=== PATIENT | male | born 1950 | race Caucasian/White ===

== ENCOUNTER → 2017-03-27 | Outpatient (CLI) | payer MEDICARE, OTHER ==
[2017-03-27 15:05] LABS: PARTIAL THROMBOPLASTIN TIME 37.5 SEC (23.5-35.8)
== END ==
LOC: OD 12:46
PROVIDERS: ATTEND Internal Medicine Gastroenterology
DX: K70.31 Alcoholic cirrhosis of liver with ascites (principal)
CPT/HCPCS: 36415; 82105; 85610; 85730

== ENCOUNTER 2017-04-03 12:24 | Day surgery (SDC) | payer MEDICARE, OTHER ==
[2017-04-03 12:53] LABS: HEMATOCRIT 36.2 % (37.9-51.0); HEMOGLOBIN 12.7 g/dL (13.5-17.0); MEAN CORPUSCULAR HEMOGLOBIN 35.9 pg (27.0-33.4); MEAN CORPUSCULAR HGB CONC 35.1 g/dL (32.0-36.0); MEAN CORPUSCULAR VOLUME 102 fl (80-97); PLATELET COUNT 178 10^3/uL (150-450); RED BLOOD COUNT 3.54 10^6/uL (4.35-5.55); WHITE BLOOD COUNT 6.4 10^3/uL (4.0-10.5)
[2017-04-03 13:05] LABS: INTERNATIONAL RATION (INR) 1.03; PROTHROMBIN TIME 14.2 SEC (11.4-15.4)
[2017-04-03 13:06] LABS: PARTIAL THROMBOPLASTIN TIME 37.7 SEC (23.5-35.8)
[2017-04-03 13:24] LABS: BLOOD UREA NITROGEN 12 mg/dL (7-20)
[2017-04-03 15:15] VITALS: BP 139/85
--- NOTE | 2017-04-03 16:25 | RADIOLOGY REPORT (SQ) ---
EXAM DESCRIPTION: U/S ABD PARACENTESIS COMPLETED DATE/TIME: 04/03/2017 2:45 pm REASON FOR STUDY: ASCITES COMPARISON None. LIMITATIONS: None. PROCEDURE: After obtaining informed consent, the patient was brought to the ultrasound suite. The p rocedure was performed with the patient on a gurney. Ultrasound was used to identify a prominent poc ket of ascites in the right lower quadrant. An appropriate access site was selected. The patient wa s prepped and draped in usual sterile fashion. The access site was anesthetized with 7 mL 1% lidoca ine. A Bdai-H-Wsvfpfqc needle was advanced into the fluid. After aspiration of fluid the needle, th e catheter was advanced off the needle into the fluid. A total of 3,000 mL of clear straw-colored fl uid was removed. The patient tolerated the procedure well left the department in satisfactory conditi on. Fluid was sent for cytology IMPRESSION: Successful ultrasound-guided paracentesis COMMENT: Patient medication list reviewed: Yes- Quality ID# [id number]:Eligible professional attests to doc umenting in the medical record they obtained, updated, or reviewed the patient's current medications. Quality ID #[id number]: The patient was prepped and draped using maximum sterile barrier technique including cap, mask, sterile gown, sterile gloves, a large sterile sheet, hand hygiene, and 2% Chlorhexidine fo r cutaneous antisepsis. When ultrasound is used, sterile ultrasound techniques are followed requiring sterile gel and sterile probes. Quality ID #[id number]: Final reports for procedures using fluoroscopy that document radiation exposure tiff denise, or exposure time and number of fluorographic images (if radiation exposure indices are not avail able) TECHNICAL DOCUMENTATION: JOB ID: [id number] [employer]- All Rights Reserved
== END 2017-04-03 15:25 | disposition home or self-care (01) ==
LOC: RAD 12:24
PROVIDERS: ATTEND Internal Medicine Gastroenterology
PROC: 0W9F3ZZ Drainage of Abdominal Wall, Percutaneous Approach (ICD-10-PCS; principal; 2017-04-03)
DX: K70.31 Alcoholic cirrhosis of liver with ascites (principal); Z79.51 Long term (current) use of inhaled steroids; Z79.899 Other long term (current) drug therapy
CPT/HCPCS: 36415; 49083; 82565; 84520; 85027; 85610; 85730

== ENCOUNTER 2017-04-13 10:20 | Day surgery (SDC) | payer OTHER ==
[~2017-04-13 10:20] MED LIST: PROPOFOL INJ 200 MG/20 ML VIAL IV ONE
[2017-04-13 11:58] VITALS: BP 111/63
--- NOTE | 2017-04-13 13:24 | Operative Report ---
Operative Report DATE OF SURGERY: 04/13/17 Operative Report: The risks benefits and alternatives of the procedure explained to the patient in detail and informed consent is obtained.A GIF Olympus video scope was inserted into the patient's mouth and hypopharynx, the esophagus is identified intubated and insufflated, the scope was then advanced through the esophagus stomach and duodenum, retroflexion maneuver is done, the esophagus stomach and first and second portions of the duodenum examined PREOPERATIVE DIAGNOSIS: Cirrhosis, evaluate for esophageal varices POSTOPERATIVE DIAGNOSIS: Grade 1 esophageal varices. Esophagitis. Gastritis status post biopsy rule out Helicobacter pylori OPERATION: EGD with biopsy SURGEON: EMERITA YANG ANESTHESIA: LMAC TISSUE REMOVED OR ALTERED: As noted above. COMPLICATIONS: None. ESTIMATED BLOOD LOSS: None. INTRAOPERATIVE FINDINGS: As noted above. PROCEDURE: Patient tolerated procedure well. No immediate postprocedure complications are noted. Patient discharged in good condition. Discharge date 04/13/2017. Discharge diet: Regular. Discharge activity: Regular. 2-3 week follow-up to discuss findings. Patient is instructed call the office or proceed to the emergency room should there be any further problems or questions. We will wait on pathology.
== END 2017-04-13 12:05 | disposition home or self-care (01) ==
LOC: END 10:20
PROVIDERS: ATTEND Internal Medicine Gastroenterology
PROC: 0DB68ZX Excision of Stomach, Via Natural or Artificial Opening Endoscopic, Diagnostic (ICD-10-PCS; principal; 2017-04-13 13:00)
DX: I85.00 Esophageal varices without bleeding (principal); K20.9 Esophagitis, unspecified; K31.9 Disease of stomach and duodenum, unspecified; K70.31 Alcoholic cirrhosis of liver with ascites; Z79.51 Long term (current) use of inhaled steroids
CPT/HCPCS: 43239; 88342 ×2; 88305 ×2; J2704; 731

== ENCOUNTER 2018-03-07 11:24 | Emergency (ER) | payer OTHER ==
--- NOTE | 2018-03-07 12:04 | ER Document Report ---
ED Medical Screen (RME) - General Chief Complaint: Productive Cough Stated Complaint: COUGH Time Seen by Provider: 03/07/18 11:36 Mode of Arrival: Ambulatory Information source: Patient - And Notes: 68-year-old male presents to ED for cough times 3 weeks. He states he has been extremely short of breath. He states while he is sitting upright he can breathe okay but as soon as he lays down he becomes very short of breath and has a hard time catching his breath. He states he was hospitalized at [facility] for acute alcohol hepatitis, acute renal failure, ascites, C. difficile, anemia, and hypotension. He states he was released 10 days ago and has not been able to lay flat to breathe since. He states he has had the ascites and the last time it was drained was in March. He states while he was at [facility] they were so concerned about the renal failure and C. difficile that they did not drain his abdomen. He states that he was not released from [facility] until he had a negative C. difficile test. Patient and states that he cannot lay flat and is propped up on several pillows at home. Breath sounds are diminished. Patient was ordered labs x-ray will be evaluated by another provider. I have greeted and performed a rapid initial assessment of this patient. A comprehensive ED assessment and evaluation of the patient, analysis of test results and completion of medical decision making process will be conducted by an additional ED providers. TRAVEL OUTSIDE OF THE [place] IN LAST 30 DAYS: No - Related Data Allergies/Adverse Reactions: Penicillins Allergy (Verified 03/07/18 11:26) Urticaria FLU VACCINE Allergy (Uncoded 03/07/18 11:26) Past Medical History - Social History Chew tobacco use (# tins/day): No Frequency of alcohol use: None Drug Abuse: None - Past Medical History Cardiac Medical History: Reports: Hx Hypertension - ON MEDS Denies: Hx Coronary Artery Disease, Hx Heart Attack Pulmonary Medical History: Denies: Hx Asthma, Hx Bronchitis, Hx COPD, Hx Pneumonia Neurological Medical History: Denies: Hx Cerebrovascular Accident, Hx Seizures Renal/ Medical History: Denies: Hx Peritoneal Dialysis Musculoskeltal Medical History: Denies Hx Arthritis - Immunizations Hx Diphtheria, Pertussis, Tetanus Vaccination: No - UNSURE History of Influenza Vaccine for 12/2016 - 05/2017 Season: No Physical Exam - Vital signs Vitals: Temp Pulse Resp BP Pulse Ox 98 F 90 22 H 113/67 100 03/07/18 11:33 03/07/18 11:33 03/07/18 11:33 03/07/18 11:33 03/07/18 11:33 Course - Vital Signs Vital signs: Temp Pulse Resp BP Pulse Ox 98 F 90 22 H 113/67 100 03/07/18 11:33 03/07/18 11:33 03/07/18 11:33 03/07/18 11:33 03/07/18 11:33 Doctor's Discharge - Discharge Referrals: KOBI CANNON, [Primary Care Provider] - Follow up as needed
--- NOTE | 2018-03-07 12:33 | RADIOLOGY REPORT (SQ) ---
EXAM DESCRIPTION: ACUTE ABDOMEN SERIES COMPLETED DATE/TIME: 03/07/2018 12:23 pm REASON FOR STUDY: acites cough short of breath COMPARISON: None. NUMBER OF VIEWS: Three views. TECHNIQUE: PA chest, supine abdomen and upright/decubitus abdomen radiographic images acquired. LIMITATIONS: None. FINDINGS: CHEST: Lungs clear of infiltrates. FREE AIR: None. No abnormal gas collections. BOWEL GAS PATTERN: Few scattered small bowel loops with air fluid levels. No distended large or small bowel loops. CALCIFICATIONS: No suspicious calcifications. HARDWARE: None in the abdomen. SOFT TISSUES: No gross mass or suggestion of organomegaly. BONES: No acute fracture. No worrisome bone lesions. OTHER: No other significant finding. IMPRESSION: NONSPECIFIC BOWEL GAS PATTERN WITHOUT EVIDENCE FOR OBSTRUCTION. TECHNICAL DOCUMENTATION: JOB ID: [id number] [employer]- All Rights Reserved Reading location - IP/workstation name: [email or web address]
[2018-03-07 12:45] LABS: ABSOLUTE BASOPHILS # (AUTO) 0.1 10^3/uL (0.0-0.2); ABSOLUTE EOSINOPHILS # (AUTO) 0.2 10^3/uL (0.0-0.6); ABSOLUTE LYMPHOCYTES (AUTO) 1.3 10^3/uL (0.5-4.7); ABSOLUTE MONOCYTES (AUTO) 1.3 10^3/uL (0.1-1.4); ABSOLUTE NEUT (AUTO) 9.5 10^3/uL (1.7-8.2); BASOPHILS % (AUTO) 0.8 % (0-2); EOSINOPHILS % (AUTO) 1.3 % (0-6); HEMATOCRIT 29.4 % (37.9-51.0); HEMOGLOBIN 9.8 g/dL (13.5-17.0); LYMPHOCYTES % (AUTO) 10.3 % (13-45); MEAN CORPUSCULAR HEMOGLOBIN 36.4 pg (27.0-33.4); MEAN CORPUSCULAR HGB CONC 33.4 g/dL (32.0-36.0); MEAN CORPUSCULAR VOLUME 109 fl (80-97); MONOCYTES % (AUTO) 10.7 % (3-13); PLATELET COUNT 305 10^3/uL (150-450); RED CELL DISTRIBUTION WIDTH 15.3 % (11.5-14.0); SEGMENTED NEUTROPHILS % (AUTO) 76.9 % (42-78); TOTAL CELLS COUNTED % (AUTO) 100 %; WHITE BLOOD COUNT 12.4 10^3/uL (4.0-10.5)
[2018-03-07 12:54] LABS: INTERNATIONAL RATION (INR) 1.64; PROTHROMBIN TIME 20.2 SEC (11.4-15.4)
[2018-03-07 12:55] LABS: PARTIAL THROMBOPLASTIN TIME 45.6 SEC (23.5-35.8)
[2018-03-07 12:56] LABS: ALANINE AMINOTRANSFERASE 28 U/L (21-72); ALBUMIN 4.2 g/dL (3.5-5.0); ALKALINE PHOSPHATASE 148 U/L (38-126); ANION GAP 14 (5-19); ASPARTATE AMINO TRANSFERASE 112 U/L (17-59); BILIRUBIN,DIRECT 5.3 mg/dL (0.0-0.4); BILIRUBIN,TOTAL 7.8 mg/dL (0.2-1.3); BLOOD UREA NITROGEN 22 mg/dL (7-20); CALCIUM 9.5 mg/dL (8.4-10.2); CARBON DIOXIDE 18 mmol/L (22-30); CHLORIDE 108 mmol/L (98-107); GLUCOSE 109 mg/dL (75-110); LIPASE 256.2 U/L (23-300); POTASSIUM 5.1 mmol/L (3.6-5.0); SODIUM 140.2 mmol/L (137-145); TOTAL PROTEIN 8.2 g/dL (6.3-8.2)
--- NOTE | 2018-03-07 14:37 | ER Document Report ---
ED General - General Chief Complaint: Productive Cough Stated Complaint: COUGH Time Seen by Provider: 03/07/18 11:36 Mode of Arrival: Ambulatory TRAVEL OUTSIDE OF THE [place] IN LAST 30 DAYS: No - HPI Onset: Other - This is a 68-year-old gentleman with alcoholic cirrhosis and resultant ascites who has undergone previous admission approximately 1 month ago for inpatient detox followed by an episode where he had complicated withdrawals low blood pressures requiring hospitalization in intensive care unit setting who is been doing well at home that she developed shortness of breath over the last month as well as a cough which has been persistent. He and his note that the cough is making it difficult for him to obtain normal rest because of it keeping him up at night. They deny any fevers, chills, back pain, chest pain do endorses some low-grade abdominal pain. He has had episodes like this in the past and previously had undergone large volume paracentesis in an attempt to help alleviate some of these symptoms. - Related Data Allergies/Adverse Reactions: Penicillins Allergy (Verified 03/07/18 11:26) Urticaria FLU VACCINE Allergy (Uncoded 03/07/18 11:26) Past Medical History - General Information source: Patient - And - Social History Smoking Status: Never Smoker Chew tobacco use (# tins/day): No Frequency of alcohol use: None Drug Abuse: None Family History: None Patient has suicidal ideation: No Patient has homicidal ideation: No - Past Medical History Cardiac Medical History: Reports: Hx Hypertension - ON MEDS Denies: Hx Coronary Artery Disease, Hx Heart Attack Pulmonary Medical History: Denies: Hx Asthma, Hx Bronchitis, Hx COPD, Hx Pneumonia Neurological Medical History: Denies: Hx Cerebrovascular Accident, Hx Seizures Renal/ Medical History: Denies: Hx Peritoneal Dialysis Musculoskeletal Medical History: Denies Hx Arthritis - Immunizations Hx Diphtheria, Pertussis, Tetanus Vaccination: No - UNSURE Review of Systems - Review of Systems -: Yes All other systems reviewed and negative Physical Exam - Vital signs Vitals: Temp Pulse Resp BP Pulse Ox 98 F 90 22 H 113/67 100 03/07/18 11:33 03/07/18 11:33 03/07/18 11:33 03/07/18 11:33 03/07/18 11:33 - General General appearance: Appears well In distress: None - HEENT Head: Normocephalic Eyes: Normal Conjunctiva: Normal Cornea: Normal Extraocular movements intact: Yes Eyelashes: Normal Pupils: PERRL - Respiratory Respiratory status: No respiratory distress Chest status: Nontender Breath sounds: Normal Chest palpation: Normal - Cardiovascular Rhythm: Regular Heart sounds: Normal auscultation - Abdominal Inspection: Other - Massive ascites Distension: Distended, Fluid wave Bowel sounds: Normal Tenderness: Nontender Organomegaly: No organomegaly - Back Back: Normal - Extremities General upper extremity: Normal inspection, Nontender, Normal color, Normal ROM, Normal temperature General lower extremity: Normal inspection, Nontender, Normal color, Normal ROM, Normal temperature, Normal weight bearing. No: Stephanie's sign - Neurological Neuro grossly intact: Yes Cognition: Normal Orientation: AAOx4 Chung Coma Scale Eye Opening: Spontaneous Chung Coma Scale Verbal: Oriented Chung Coma Scale Motor: Obeys Commands Chung Coma Scale Total: 15 Speech: Normal Motor strength normal: LUE, RUE, LLE, RLE Sensory: Normal - Psychological Associated symptoms: Normal affect, Normal mood Course - Re-evaluation Re-evalutation: 03/07/18 19:01 This gentleman presents for persistent cough. He has symptoms suggestive of a post viral cough which is making it very difficult for him to obtain any relief and sleep at night. Despite the fact that his cough is relatively benign it is noteworthy that this gentleman does have large volume ascites which likely contributes to his difficulty. In the past he had undergone paracentesis. He and his did discuss possible paracentesis with me. I did discuss that large volume paracentesis for symptom relief is not generally a procedure with which I have asked how or perform with any regularity as such I do not feel comfortable performing this elective procedure in the emergency department particularly because of the volume involved. I do think that this gentleman would benefit from some antitussive as I did hear him cough while I was in the room for some period of time and it seemed somewhat distressing to him. I will give him a trial of codeine. The patient does not have influenza, does not have obvious large pleural effusion on the right side or edema in the lungs. He is generally pretty well-appearing at this time. I do not believe that he has a more serious underlying cause of his cough and shortness of breath such as but not limited to pneumonia, heart failure, liver failure on top of his chronic liver failure. He will be discharged with follow-up with his primary physician and instructions to attempt to obtain a paracentesis in the coming days. He has been given a brief course of codeine to help with his cough at home. He was given return precautions and encouraged to follow-up with Dr. Yang as well. - Vital Signs Vital signs: Temp Pulse Resp BP Pulse Ox 98.1 F 83 20 115/61 99 03/07/18 14:45 03/07/18 14:45 03/07/18 14:45 03/07/18 14:45 03/07/18 14:45 - Laboratory Result Diagrams: 03/07/18 12:20 03/07/18 12:20 Laboratory results interpreted by me: 03/07/18 03/07/18 03/07/18 12:20 12:20 12:20 WBC 12.4 H RBC 2.70 L Hgb 9.8 L Hct 29.4 L MCV 109 H MCH 36.4 H RDW 15.3 H Lymphocytes % 10.3 L Absolute Neutrophils 9.5 H PT 20.2 H APTT 45.6 H Potassium 5.1 H Chloride 108 H Carbon Dioxide 18 L BUN 22 H Total Bilirubin 7.8 H Direct Bilirubin 5.3 H AST 112 H Alkaline Phosphatase 148 H Discharge - Discharge Clinical Impression: Cough Ascites Qualifiers: Ascites type: due to alcoholic cirrhosis Qualified Code(s): K70.31 - Alcoholic cirrhosis of liver with ascites Insomnia Qualifiers: Insomnia type: unspecified Qualified Code(s): G47.00 - Insomnia, unspecified Condition: Good Disposition: HOME, SELF-CARE Instructions: Cough Suppressant & Expectorant Medications Additional Instructions: You were seen today in the emergency department for your cough. You had evaluation including labs as well as an x-ray of your chest and abdomen. You have ascites, this ascites is because of your cirrhosis. This ascites will continue to come back. Because this is going to come back I do not believe it is appropriate to drain in the emergency department right now. To treat her cough however I do want to help, you have been given a brief prescription for a cough medication. Start with half the dose to see how you do with it. Sleep propped up on pillows. I attempted to call the radiology department to schedule a paracentesis for you, they are out of the office today. You should call tomorrow to try and schedule an appointment this week. Return if you are unable to breathe, have worsening chest pain, worsening abdominal pain or fevers as it could be a more serious condition. Prescriptions: Guaifenesin/Codeine Phos [Codeine 10 Mg-Guai 300 Mg Liq] 473 ml PO TID #1 liquid Referrals: KOBI CANNON DO [Primary Care Provider] - Follow up as needed EMERITA YANG MD [ACTIVE STAFF] - Follow up in 3-5 days GAYATHRI MONROE MD [ACTIVE STAFF] - Follow up in 3-5 days
[2018-03-07 14:47] VITALS: BP 115/61
== END 2018-03-07 14:45 | disposition home or self-care (01) ==
LOC: ER 11:24
DX: K70.31 Alcoholic cirrhosis of liver with ascites (principal); G47.00 Insomnia, unspecified; R05 Cough; R06.02 Shortness of breath; I10 Essential (primary) hypertension; Z79.899 Other long term (current) drug therapy
CPT/HCPCS: 36415; 74022; 80053; 83690; 85025; 85610; 85730; 99284

== ENCOUNTER 2018-03-08 09:32 | Emergency (ER) | payer OTHER ==
--- NOTE | 2018-03-08 10:40 | ER Document Report ---
ED Medical Screen (RME) - General Chief Complaint: Shortness Of Breath Stated Complaint: DIFFICULTY BREATHING Time Seen by Provider: 03/08/18 09:58 TRAVEL OUTSIDE OF THE [place] IN LAST 30 DAYS: No - Related Data Allergies/Adverse Reactions: Penicillins Allergy (Verified 03/08/18 09:34) Urticaria FLU VACCINE Allergy (Uncoded 03/08/18 09:34) Past Medical History - Past Medical History Cardiac Medical History: Reports: Hx Hypertension - ON MEDS Denies: Hx Coronary Artery Disease, Hx Heart Attack Pulmonary Medical History: Denies: Hx Asthma, Hx Bronchitis, Hx COPD, Hx Pneumonia Neurological Medical History: Denies: Hx Cerebrovascular Accident, Hx Seizures Renal/ Medical History: Denies: Hx Peritoneal Dialysis Musculoskeltal Medical History: Denies Hx Arthritis - Immunizations Hx Diphtheria, Pertussis, Tetanus Vaccination: No - UNSURE History of Influenza Vaccine for 12/2016 - 05/2017 Season: No Physical Exam - Vital signs Vitals: Temp Pulse Resp BP Pulse Ox 98.6 F 79 18 115/64 97 03/08/18 09:41 03/08/18 09:41 03/08/18 09:41 03/08/18 09:41 03/08/18 09:41 Course - Re-evaluation Re-evalutation: 03/08/18 10:40 Nader Jensen is a 68-year-old man with profound ascites and liver failure in the setting of alcoholic cirrhosis who presents for evaluation of desired paracentesis. Incidentally I saw this gentleman yesterday at which time he desired the same thing, his did call into the radiology department they noted that if he presented today they likely would be able to perform the pa racentesis. Contacted radiology department who agrees to evaluate this patient. I will plan for this patient undergo further investigation evaluation by secondary provider, the the appropriate diagnostics, disposition and workup will be deferred to that provider. I have performed a rapid screening examination and they will require further evaluation. - Vital Signs Vital signs: Temp Pulse Resp BP Pulse Ox 98.6 F 79 18 115/64 97 03/08/18 09:41 03/08/18 09:41 03/08/18 09:41 03/08/18 09:41 03/08/18 09:41 - Laboratory Result Diagrams: 03/08/18 10:27 12/24/18 10:27 Doctor's Discharge - Discharge Referrals: KOBI CANNON, [Primary Care Provider] - Follow up as needed
[2018-03-08 10:42] LABS: ABSOLUTE BASOPHILS # (AUTO) 0.1 10^3/uL (0.0-0.2); ABSOLUTE EOSINOPHILS # (AUTO) 0.2 10^3/uL (0.0-0.6); ABSOLUTE LYMPHOCYTES (AUTO) 1.4 10^3/uL (0.5-4.7); ABSOLUTE NEUT (AUTO) 9.4 10^3/uL (1.7-8.2); BASOPHILS % (AUTO) 0.7 % (0-2); EOSINOPHILS % (AUTO) 1.5 % (0-6); HEMATOCRIT 28.2 % (37.9-51.0); HEMOGLOBIN 9.5 g/dL (13.5-17.0); LYMPHOCYTES % (AUTO) 11.5 % (13-45); MEAN CORPUSCULAR HEMOGLOBIN 36.5 pg (27.0-33.4); MEAN CORPUSCULAR HGB CONC 33.7 g/dL (32.0-36.0); MEAN CORPUSCULAR VOLUME 108 fl (80-97); MONOCYTES % (AUTO) 8.6 % (3-13); PLATELET COUNT 309 10^3/uL (150-450); RED CELL DISTRIBUTION WIDTH 15.2 % (11.5-14.0); SEGMENTED NEUTROPHILS % (AUTO) 77.7 % (42-78); TOTAL CELLS COUNTED % (AUTO) 100 %
--- NOTE | 2018-03-08 10:47 | ER Document Report ---
ED General - General Mode of Arrival: Ambulatory Information source: Patient TRAVEL OUTSIDE OF THE [place] IN LAST 30 DAYS: No <PATRICIA GONZALEZ - Last Filed: 03/08/18 14:17> <YESSENIA LABOY - Last Filed: 03/08/18 16:03> - General Chief Complaint: Shortness Of Breath Stated Complaint: DIFFICULTY BREATHING Time Seen by Provider: 03/08/18 09:58 Notes: Patient is a 68-year-old man with ascites, alcoholic cirrhosis who presents for desired paracentesis. Patient presented to the emergency department yesterday complaining of a cough and was discharged home with codeine cough syrup and instructions to contact radiology to schedule a paracentesis. called radiology and was told to present to the emergency department today, where he would likely be able to have a paracentesis performed. Patient also complains of a cough and states the coughing sensation comes from his upper chest. also expresses concern for bilateral feet and ankle swelling onset yesterday. Of significance, patient reports being admitted to [facility] for "rehab", c.diff, liver failure, and kidney failure. He states he was discharged sometime last week. Patient states he was was sent to [facility] and had a endoscopy performed by in March 2017. He states he had a stomach lining biopsy but did not have a liver biopsy. states Dr. Manzano confirmed the patient had alcholoic cirrhosis and reported a liver biopsy was not necessary. Patient also had a paracentesis performed in March. (PATRICIA GONZALEZ) 68-year-old male patient with chronic alcoholic cirrhosis who reports that he finally stopped drinking 4 weeks ago. He was in a [facility] recently with C. difficile diarrhea that caused him to go into renal failure. He was discharged about 10 days ago after his renal function had returned to an acceptable level. He was seen here yesterday complaining about his abdominal girth, ascites, and edema to his lower extremities. He returned today for paracentesis and reports that his feet have swollen more since yesterday. He has also had a cough for for 2-3 weeks and received a prescription for cough syrup with codeine last night. His last paracentesis was in March 2017. (YESSENIA LABOY) - Related Data Allergies/Adverse Reactions: Penicillins Allergy (Verified 03/08/18 09:34) Urticaria FLU VACCINE Allergy (Uncoded 03/08/18 09:34) Past Medical History - General Information source: Patient - Social History Smoking Status: Unknown if Ever Smoked Cigarette use (# per day): No Chew tobacco use (# tins/day): No Family History: None Patient has suicidal ideation: No Patient has homicidal ideation: No - Past Medical History Cardiac Medical History: Reports: Hx Hypertension - ON MEDS Denies: Hx Coronary Artery Disease, Hx Heart Attack Pulmonary Medical History: Denies: Hx Asthma, Hx Bronchitis, Hx COPD, Hx Pneumonia Neurological Medical History: Denies: Hx Cerebrovascular Accident, Hx Seizures Renal/ Medical History: Denies: Hx Peritoneal Dialysis Musculoskeletal Medical History: Denies Hx Arthritis - Immunizations Hx Diphtheria, Pertussis, Tetanus Vaccination: No - UNSURE <PATRICIA GONZALEZ - Last Filed: 03/08/18 14:17> Review of Systems - Review of Systems Constitutional: No symptoms reported EENT: No symptoms reported Cardiovascular: No symptoms reported Respiratory: No symptoms reported Gastrointestinal: See HPI Genitourinary: No symptoms reported Male Genitourinary: No symptoms reported Musculoskeletal: No symptoms reported Skin: No symptoms reported Hematologic/Lymphatic: No symptoms reported Neurological/Psychological: No symptoms reported -: Yes All other systems reviewed and negative <PATRICIA GONZALEZ - Last Filed: 03/08/18 14:17> Physical Exam <PATRICIA GONZALEZ - Last Filed: 03/08/18 14:17> - Vital signs Vitals: Temp Pulse Resp BP Pulse Ox 98.6 F 79 18 115/64 97 03/08/18 09:41 03/08/18 09:41 03/08/18 09:41 03/08/18 09:41 03/08/18 09:41 - Notes Notes: GENERAL: Alert, interacts well. No acute distress. HEAD: Normocephalic, atraumatic. EYES: Pupils equal, round, and reactive to light, jaundiced. Extraocular movem ents intact. ENT: Oral mucosa moist, tongue midline. NECK: Full range of motion. Supple. Trachea midline. LUNGS: Clear to auscultation bilaterally, no wheezes, rales, or rhonchi. No respiratory distress. HEART: Regular rate and rhythm. No murmurs, gallops, or rubs. ABDOMEN: Distended, fluid wave, consistent with history of ascites. Bowel sounds present in all 4 quadrants. EXTREMITIES: Moves all 4 extremities spontaneously. NEUROLOGICAL: Alert and oriented x3. Normal speech. PSYCH: Normal affect, normal mood. SKIN: Warm, dry, normal turgor, jaundiced. No rashes or lesions noted. (PATRICIA GONZALEZ) Course - Laboratory Result Diagrams: 03/08/18 10:27 03/08/18 10:27 <PATRICIA GONZALEZ - Last Filed: 03/08/18 14:17> - Laboratory Result Diagrams: 03/08/18 10:27 03/08/18 10:27 - Diagnostic Test Radiology reviewed: Reports reviewed - The liver ultrasound with Doppler shows a diffuse heterogeneous increased coarsened echotexture to the liver related to the underlying liver disease. There is normal flow of the inferior vena cava. Patient is status post cholecystectomy. <YESSENIA LABOY - Last Filed: 03/08/18 16:03> - Re-evaluation Re-evalutation: 03/08/18 15:58 The patient was given a nebulized lidocaine treatment, and that did stop his cough for a few hours. It is worn off at this point and whenever he talks he coughs more and sounds like he is getting irritation in the subglottic region leading to his cough. His lab work was interesting in that his serum albumin and serum protein were normal. A liver ultrasound and Doppler was done to exclude another cause of his edema and ascites and it was consistent with the diagnosis of alcoholic liver cirrhosis. The patient did have paracentesis done and approximately 3500 mL's of straw- colored fluid was removed. The fluid was slightly hazy, slightly viscous, with 37 WBCs, 76 RBC, 19% segmented neutrophils, 76% lymphocytes, and 5% monocytes. (YESSENIA LABOY) - Vital Signs Vital signs: Temp Pulse Resp BP Pulse Ox 98.6 F 79 18 115/64 97 03/08/18 09:41 03/08/18 09:41 03/08/18 09:41 03/08/18 09:41 03/08/18 09:41 - Laboratory Laboratory results interpreted by me: 03/08/18 03/08/18 03/08/18 10:27 10:27 10:27 WBC 12.0 H RBC 2.60 L Hgb 9.5 L Hct 28.2 L MCV 108 H MCH 36.5 H RDW 15.2 H Lymphocytes % 11.5 L Absolute Neutrophils 9.4 H PT 19.4 H APTT 45.2 H Chloride 108 H Carbon Dioxide 20 L BUN 21 H Est GFR (Non-Af Amer) 58 L Total Bilirubin 8.2 H Direct Bilirubin 5.2 H AST 100 H Alkaline Phosphatase 145 H Total Protein 8.3 H Discharge <PATRICIA GONZALEZ - Last Filed: 03/08/18 14:17> <YESSENIA LABOY - Last Filed: 03/08/18 16:03> - Discharge Clinical Impression: Ascites due to alcoholic cirrhosis, Chronic coughing, Peripheral edema Liver function failure Qualifiers: Liver failure chronicity: chronic Hepatic coma status: without hepatic coma Jorge lified Code(s): K72.10 - Chronic hepatic failure without coma Condition: Stable Disposition: HOME, SELF-CARE Additional Instructions: Continue all of your regular medications. Take the cough syrup with codeine that you are prescribed last night to try to help suppress your cough. Drink plenty of fluids. Avoid food and fluids that are high in sodium or high in caffeine. Try using a humidifier. Follow-up with your primary care provider and with Dr. Manzano--call both of them on Thursday morning to schedule an appointment as soon as available. RETURN TO THE EMERGENCY ROOM IF ANY NEW OR WORSENING SYMPTOMS. Referrals: KOBI CANNON DO [Primary Care Provider] - Follow up in 3-5 days EMERITA MANZANO MD [ACTIVE STAFF] - Follow up in 3-5 days Scribe Attestation: 03/08/18 14:17 I personally performed the services described in the documentation, reviewed and edited the documentation which was dictated to the scribe in my presence, and it accurately records my words and actions. (YESSENIA LABOY) Scribe Documentation - Scribe Written by Quincy:: Quincy Piedra, 03/08/2018 11:07 acting as scribe for :: Sarah <PATRICIA GONZALEZ - Last Filed: 03/08/18 14:17>
[2018-03-08 10:57] LABS: INTERNATIONAL RATION (INR) 1.56; PROTHROMBIN TIME 19.4 SEC (11.4-15.4)
[2018-03-08 10:58] LABS: PARTIAL THROMBOPLASTIN TIME 45.2 SEC (23.5-35.8)
[2018-03-08] MEDS ORDERED: LIDOCAINE 1% INJ-PF (10 MG/ML) 30 ML SDV ONE (10:58)
[2018-03-08 11:07] LABS: ALANINE AMINOTRANSFERASE 29 U/L (21-72); ALBUMIN 4.1 g/dL (3.5-5.0); ALKALINE PHOSPHATASE 145 U/L (38-126); ANION GAP 10 (5-19); ASPARTATE AMINO TRANSFERASE 100 U/L (17-59); BILIRUBIN,DIRECT 5.2 mg/dL (0.0-0.4); BILIRUBIN,TOTAL 8.2 mg/dL (0.2-1.3); BLOOD UREA NITROGEN 21 mg/dL (7-20); CALCIUM 9.5 mg/dL (8.4-10.2); CARBON DIOXIDE 20 mmol/L (22-30); CHLORIDE 108 mmol/L (98-107); GLUCOSE 108 mg/dL (75-110); POTASSIUM 4.9 mmol/L (3.6-5.0); SODIUM 138.2 mmol/L (137-145); TOTAL PROTEIN 8.3 g/dL (6.3-8.2)
[2018-03-08] MEDS ORDERED: LIDOCAINE 1% INJ-PF (10 MG/ML) 30 ML SDV NEB ONE (12:03)
--- NOTE | 2018-03-08 12:21 | RADIOLOGY REPORT (SQ) ---
EXAM DESCRIPTION: U/S ABD PARACENTESIS COMPLETED DATE/TIME: 03/08/2018 12:08 pm REASON FOR STUDY: large volume ascites liver failure, jaundice, cirrhosis COMPARISON 04/03/2017 LIMITATIONS: None. PROCEDURE: After obtaining informed consent, the patient was brought to the ultrasound suite. The p rocedure was performed with the patient on a gurney. Ultrasound was used to identify a prominent poc ket of ascites in the right lower quadrant. An appropriate access site was selected. The patient wa s prepped and draped in usual sterile fashion. The access site was anesthetized with 7 mL 1% lidoca ine. A Hlws-Q-Cohosxxw needle was advanced into the fluid. After aspiration of fluid the needle, th e catheter was advanced off the needle into the fluid. A total of 3,500 mL of clear yellow fluid was removed. The patient tolerated the procedure well left the department in satisfactory condition. Fluid was sent for testing as per Dr. Smith in the emergency room IMPRESSION: Successful ultrasound-guided therapeutic and diagnostic paracentesis COMMENT: Patient medication list reviewed: Yes- Quality ID# [id number]:Eligible professional attests to doc umenting in the medical record they obtained, updated, or reviewed the patient's current medications. TECHNICAL DOCUMENTATION: JOB ID: [id number] [employer]- All Rights Reserved Reading location - IP/workstation name: [email or web address]
[2018-03-08 13:52] LABS: FLUID APPEARANCE SLIGHTLY HAZY; FLUID COLOR YELLOW; FLUID SOURCE ASCITES; FLUID TYPE PERITONEAL
[2018-03-08 13:53] LABS: FLUID VISCOSITY SLIGHTLY VISCOUS
--- NOTE | 2018-03-08 15:19 | RADIOLOGY REPORT (SQ) ---
EXAM DESCRIPTION: U/S ABDOMEN LTD W/DOPPLER COMPLETED DATE/TIME: 03/08/2018 3:07 pm REASON FOR STUDY: Liver-ascites,edema, nml serum protein albumin COMPARISON: 03/24/20172017 and 02/14/2018 ultrasound abdomen paracentesis TECHNIQUE: Dynamic and static grayscale images acquired of the abdomen and recorded on PACS. Additio nal selected color Doppler and spectral images recorded. LIMITATIONS: None. FINDINGS: PANCREAS: Not visualized due to overlying bowel gas. LIVER: The liver measures 16.1 cm in length, normal size. Diffuse heterogenous increased coarsened e chotexture to the liver may be related to the patient's underlying history of cirrhosis of the liver. LIVER VASCULATURE: Normal directional flow of the main portal vein and hepatic veins. The portal vei n demonstrates a pulsatile waveform. GALLBLADDER: Prior cholecystectomy. ULTRASOUND-DETECTED MANNING'S SIGN: Negative. INTRAHEPATIC DUCTS AND COMMON DUCT: Partially visualized. The common bile duct measures 0.9 cm in d iameter in a post cholecystectomy patient. INFERIOR VENA CAVA: Normal flow. AORTA: Not visualized due to overlying bowel gas. RIGHT KIDNEY: The right kidney measures 11.5 cm in length, normal size. Normal echogenicity. No analilia id or suspicious masses. No hydronephrosis. No calcifications. PERITONEAL AND RIGHT PLEURAL SPACE: No ascites or effusions. OTHER: No other significant findings. IMPRESSION: 1. The pancreas and abdominal aorta not visualized due to overlying bowel gas. 2. Diffuse heterogenous increased coarsened echotexture to the liver, may be related to the patient' s underlying history of liver disease. 3. Prior cholecystectomy. TECHNICAL DOCUMENTATION: JOB ID: [id number]- All Rights Reserved Reading location - IP/workstation name: [email or web address]
[2018-03-08 16:58] VITALS: BP 113/51
== END 2018-03-08 16:25 | disposition home or self-care (01) ==
LOC: ER 09:32
PROC: 0W9G3ZX Drainage of Peritoneal Cavity, Percutaneous Approach, Diagnostic (ICD-10-PCS; principal; 2018-03-08)
PROC: BW40ZZZ Ultrasonography of Abdomen (ICD-10-PCS; 2018-03-08)
DX: K72.10 Chronic hepatic failure without coma (principal); K70.31 Alcoholic cirrhosis of liver with ascites; Z88.0 Allergy status to penicillin; Z88.7 Allergy status to serum and vaccine; I10 Essential (primary) hypertension; R05 Cough
CPT/HCPCS: 94640; 99285; 36415; 87205; 87070; 85025; 85610; 85730; 89050; 87075; 80053; 82042; 76705; 93976; 49083; J3490

== ENCOUNTER 2018-03-29 09:28 | Day surgery (SDC) | payer OTHER ==
[2018-03-29] MEDS ORDERED: PROPOFOL INJ 200 MG/20 ML VIAL IV ONE (10:34)
[2018-03-29 11:18] VITALS: BP 112/64
--- NOTE | 2018-03-29 12:08 | Operative Report ---
Operative Report DATE OF SURGERY: 03/29/18 Operative Report: The risks benefits and alternatives of the procedure explained to the patient in detail and informed consent is obtained.A GIF Olympus video scope was inserted into the patient's mouth and hypopharynx, the esophagus is identified intubated and insufflated, the scope was then advanced through the esophagus stomach and duodenum, retroflexion maneuver is done, the esophagus stomach and first and second portions of the duodenum examined. PREOPERATIVE DIAGNOSIS: Cirrhosis evaluate for esophageal varices POSTOPERATIVE DIAGNOSIS: Single column of a grade 3 varix prophylactically banded. Hiatal hernia. Alcoholic gastritis OPERATION: EGD with esophageal variceal banding SURGEON: EMERITA YANG ANESTHESIA: LMAC TISSUE REMOVED OR ALTERED: None. COMPLICATIONS: None. ESTIMATED BLOOD LOSS: None. INTRAOPERATIVE FINDINGS: As noted above. PROCEDURE: Patient tolerated the procedure well. No immediate postprocedure complications are noted. Patient discharged in good condition. Discharge date 03/29/2018. Discharge diet: Regular. Discharge activity: Regular. 2-3-week follow-up to discuss findings. Patient's was initially not available for discussion of results and stated that she had been in the bathroom. It was discussed with them at the previous clinic visit that the CT scan will be scheduled. Patient states that he was not aware that this was already scheduled; and this was stated prior to the procedure.
== END 2018-03-29 11:40 | disposition home or self-care (01) ==
LOC: END 09:28
PROVIDERS: ATTEND Internal Medicine Gastroenterology
DX: I85.00 Esophageal varices without bleeding (principal); K44.9 Diaphragmatic hernia without obstruction or gangrene; K29.20 Alcoholic gastritis without bleeding; K70.31 Alcoholic cirrhosis of liver with ascites; F10.21 Alcohol dependence, in remission; Z88.0 Allergy status to penicillin; Z79.899 Other long term (current) drug therapy; Z79.51 Long term (current) use of inhaled steroids
CPT/HCPCS: 43244; J2704; 731

== ENCOUNTER 2018-04-01 14:27 | Emergency (ER) | payer OTHER ==
--- NOTE | 2018-04-01 15:49 | ER Document Report ---
ED Medical Screen (RME) - General Chief Complaint: Abnormal Lab Results Stated Complaint: ELEVATED LABS Time Seen by Provider: 04/01/18 15:40 Mode of Arrival: Wheelchair Information source: Patient Notes: pt was at outpatient CT for a scan when renal function was noted as high. Sent here. Dr Phipps ordered CT due to abdominal swelling, recent EGD with banding. Pt reports abdomen is swollen but decreasing after diuretics. pt denies pain, hx of cirrhosis, quit drinking 9 days ago. TRAVEL OUTSIDE OF THE [place] IN LAST 30 DAYS: No - Related Data Allergies/Adverse Reactions: Penicillins Allergy (Verified 04/01/18 14:30) Urticaria FLU VACCINE Allergy (Uncoded 03/26/18 13:58) FELT COLD, SKIN CLAMY Past Medical History - Past Medical History Cardiac Medical History: Reports: Hx Hypertension - JUST HX OF, NO LONGER ON MEDICATION Denies: Hx Coronary Artery Disease, Hx Heart Attack Pulmonary Medical History: Denies: Hx Asthma, Hx Bronchitis, Hx COPD, Hx Pneumonia Neurological Medical History: Denies: Hx Cerebrovascular Accident, Hx Seizures Renal/ Medical History: Denies: Hx Peritoneal Dialysis Musculoskeltal Medical History: Denies Hx Arthritis - Immunizations Hx Diphtheria, Pertussis, Tetanus Vaccination: No - UNSURE History of Influenza Vaccine for 12/2016 - 05/2017 Season: No Physical Exam - Vital signs Vitals: Temp Pulse Resp BP Pulse Ox 97.3 F 91 12 100/69 100 04/01/18 14:42 04/01/18 14:42 04/01/18 14:42 04/01/18 14:42 04/01/18 14:42 Course - Vital Signs Vital signs: Temp Pulse Resp BP Pulse Ox 97.3 F 91 12 100/69 100 04/01/18 14:42 04/01/18 14:42 04/01/18 14:42 04/01/18 14:42 04/01/18 14:42 - Laboratory Result Diagrams: 04/01/18 16:10 04/01/18 16:10 Laboratory results interpreted by me: 04/01/18 04/01/18 04/01/18 16:10 16:10 17:20 WBC 11.9 H RBC 3.31 L Hgb 11.2 L Hct 33.1 L MCV 100 H D MCH 33.8 H RDW 14.4 H Absolute Neutrophils 8.5 H Sodium 134.9 L Chloride 97 L BUN 28 H Creatinine 1.94 H Est GFR ( Amer) 42 L Est GFR (Non-Af Amer) 35 L Total Bilirubin 5.8 H Direct Bilirubin 2.9 H Alkaline Phosphatase 146 H Ammonia 36.3 H Doctor's Discharge - Discharge Referrals: EMERITA YANG MD [Primary Care Provider] - Follow up as needed
[2018-04-01 16:34] LABS: ABSOLUTE BASOPHILS # (AUTO) 0.1 10^3/uL (0.0-0.2); ABSOLUTE MONOCYTES (AUTO) 1.1 10^3/uL (0.1-1.4); ABSOLUTE NEUT (AUTO) 8.5 10^3/uL (1.7-8.2); BASOPHILS % (AUTO) 0.8 % (0-2); EOSINOPHILS % (AUTO) 0.4 % (0-6); HEMATOCRIT 33.1 % (37.9-51.0); HEMOGLOBIN 11.2 g/dL (13.5-17.0); MEAN CORPUSCULAR HEMOGLOBIN 33.8 pg (27.0-33.4); MEAN CORPUSCULAR HGB CONC 33.8 g/dL (32.0-36.0); MONOCYTES % (AUTO) 9.7 % (3-13); PLATELET COUNT 284 10^3/uL (150-450); RED BLOOD COUNT 3.31 10^6/uL (4.35-5.55); RED CELL DISTRIBUTION WIDTH 14.4 % (11.5-14.0); SEGMENTED NEUTROPHILS % (AUTO) 72.1 % (42-78); TOTAL CELLS COUNTED % (AUTO) 100 %; WHITE BLOOD COUNT 11.9 10^3/uL (4.0-10.5)
[2018-04-01 16:36] LABS: MEAN CORPUSCULAR VOLUME 100 fl (80-97)
[2018-04-01 16:48] LABS: ALANINE AMINOTRANSFERASE 25 U/L (21-72); ALBUMIN 3.8 g/dL (3.5-5.0); ALKALINE PHOSPHATASE 146 U/L (38-126); AMYLASE 67 U/L (30-110); ANION GAP 12 (5-19); ASPARTATE AMINO TRANSFERASE 58 U/L (17-59); BILIRUBIN,DIRECT 2.9 mg/dL (0.0-0.4); BILIRUBIN,TOTAL 5.8 mg/dL (0.2-1.3); BLOOD UREA NITROGEN 28 mg/dL (7-20); CALCIUM 9.1 mg/dL (8.4-10.2); CARBON DIOXIDE 26 mmol/L (22-30); CHLORIDE 97 mmol/L (98-107); GLUCOSE 110 mg/dL (75-110); LIPASE 145.8 U/L (23-300); SODIUM 134.9 mmol/L (137-145); TOTAL PROTEIN 7.9 g/dL (6.3-8.2)
--- NOTE | 2018-04-01 18:41 | ER Document Report ---
ED General <YESSENIA LABOY - Last Filed: 04/01/18 19:46> - General Mode of Arrival: Wheelchair Information source: Patient TRAVEL OUTSIDE OF THE [place] IN LAST 30 DAYS: No <PATRICIA GONZALEZ - Last Filed: 04/02/18 02:09> - General Chief Complaint: Abnormal Lab Results Stated Complaint: ELEVATED LABS Time Seen by Provider: 04/01/18 15:40 Notes: This 68-year-old male patient with a history of alcoholic liver disease with ascites was sent to the emergency room today to get IV treatment for his elevated ammonia and decreased renal function. He comes with records from his primary care provider. His primary care provider has not sat down with him and his spouse to review his records or what the goals of treatment are. Further discussion with the patient and his show that no one has had a esme discussion with them about what the course of chronic liver failure is. reports that last week Dr. Manzano told him that the liver problem would be a downhill course last week, but did not elaborate or provide any explanations. 6 days ago the patient had a serum ammonia level of 144 with a normal range of 27-102. He was notified about the results 2 days ago. He was also found to have a creatinine of 1.69 at that time. It appears the only reason he did come to the emergency room today is because he came to get an outpatient CT scan of the abdomen with IV contrast, and lab work that was done today showed a creatinine of 1.94 so they sent him to the emergency room. The patient has been waiting several hours at this point and wants to go home to eat supper. His ammonia level today is 36.3(upper limit of normal is 33), and his creatinine is 1.94, it was 1.25 on 03/08/2018. I suspect his worsening renal function is due to the increased doses of Spironolactone that his doctor had him start recently which has helped get some of his ascites off. I will give him a 20gm oral dose of lactulose, a prescription to take 20 g daily, and to increase his water intake over the next several days. He should not drink excessive water, because we do not want him to have a drop in his serum sodium. 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 He was given copies of the lab work done on 03/08/2018 and again today 04/01/2018. (YESSENIA LABOY) Patient is a 68-year-old man with ascites, alcoholic cirrhosis was sent to the emergency department for evaluation and treatment of elevated creatinine. He states Dr. Manzano ordered a CT scan although the CT scan was unable to be performed due to the patient's elevated creatinine levels. Patient states his abdominal swelling is improving. Of significance, patient was seen here approximately 1 month ago seeking paracentesis and was discharged home after having 3500 mL of fluid removed. Prior to that visit, the patient was admitted to [facility] for C.diff, renal failure and kidney failure. (PATRICIA GONZALEZ) - Related Data Allergies/Adverse Reactions: Penicillins Allergy (Verified 04/01/18 14:30) Urticaria FLU VACCINE Allergy (Uncoded 03/26/18 13:58) FELT COLD, SKIN CLAMY Past Medical History - General Information source: Patient - Social History Smoking Status: Former Smoker Chew tobacco use (# tins/day): No Drug Abuse: None Family History: None Patient has suicidal ideation: No Patient has homicidal ideation: No - Past Medical History Cardiac Medical History: Reports: Hx Hypertension - JUST HX OF, NO LONGER ON MEDICATION Past Surgical History: Reports: Hx Cholecystectomy, Hx Orthopedic Surgery, Hx Tonsillectomy - Immunizations Hx Diphtheria, Pertussis, Tetanus Vaccination: No - UNSURE <PATRICIA GONZALEZ - Last Filed: 04/02/18 02:09> Review of Systems - Review of Systems Constitutional: See HPI EENT: No symptoms reported Cardiovascular: No symptoms reported Respiratory: No symptoms reported Gastrointestinal: No symptoms reported Genitourinary: No symptoms reported Male Genitourinary: No symptoms reported Musculoskeletal: No symptoms reported Skin: No symptoms reported Hematologic/Lymphatic: No symptoms reported Neurological/Psychological: No symptoms reported -: Yes All other systems reviewed and negative <PATRICIA GONZALEZ - Last Filed: 04/02/18 02:09> Physical Exam <PATRICIA GONZALEZ - Last Filed: 04/02/18 02:09> - Vital signs Vitals: Temp Pulse Resp BP Pulse Ox 97.3 F 91 12 100/69 100 04/01/18 14:42 04/01/18 14:42 04/01/18 14:42 04/01/18 14:42 04/01/18 14:42 - Notes Notes: GENERAL: Alert, interacts well. No acute distress. HEAD: Normocephalic, atraumatic. EYES: Pupils equal, round, and reactive to light. Extraocular movements intact. Minimal scleral jaundice. ENT: Oral mucosa moist, tongue midline. NECK: Full range of motion. Supple. Trachea midline. LUNGS: Clear to auscultation bilaterally, no wheezes, rales, or rhonchi. No respiratory distress. HEART: Regular rate and rhythm. No murmurs, gallops, or rubs. ABDOMEN: Soft, Ascites. No tenderness palpation. Bowel sounds present in all 4 quadrants. EXTREMITIES: Moves all 4 extremities spontaneously. NEUROLOGICAL: Alert and oriented x3. Normal speech. PSYCH: Normal affect, normal mood. SKIN: Warm, dry, normal turgor. No rashes or lesions noted. (PATRICIA GONZALEZ) Course - Laboratory Result Diagrams: 04/01/18 16:10 04/01/18 16:10 <YESSENIA LABOY - Last Filed: 04/01/18 19:46> - Laboratory Result Diagrams: 04/01/18 16:10 04/01/18 16:10 <PATRICIA GONZALEZ - Last Filed: 04/02/18 02:09> - Vital Signs Vital signs: Temp Pulse Resp BP Pulse Ox 98.5 F 82 16 109/61 97 04/01/18 19:31 04/01/18 19:31 04/01/18 19:31 04/01/18 19:31 04/01/18 19:31 - Laboratory Laboratory results interpreted by mt: 04/01/18 04/01/18 04/01/18 16:10 16:10 17:20 WBC 11.9 H RBC 3.31 L Hgb 11.2 L Hct 33.1 L MCV 100 H D MCH 33.8 H RDW 14.4 H Absolute Neutrophils 8.5 H Sodium 134.9 L Chloride 97 L BUN 28 H Creatinine 1.94 H Est GFR ( Amer) 42 L Est GFR (Non-Af Amer) 35 L Total Bilirubin 5.8 H Direct Bilirubin 2.9 H Alkaline Phosphatase 146 H Ammonia 36.3 H Discharge <YESSENIA LABOY - Last Filed: 04/01/18 19:46> <PATRICIA GONZALEZ - Last Filed: 04/02/18 02:09> - Discharge Clinical Impression: Chronic renal insufficiency, stage III (moderate), Serum ammonia increased Hepatic cirrhosis Qualifiers: Hepatic cirrhosis type: alcoholic cirrhosis Ascites presence: with ascites Qualified Code(s): K70.31 - Alcoholic cirrhosis of liver with ascites Condition: Stable Disposition: HOME, SELF-CARE Additional Instructions: Your serum ammonia level was slightly elevated. Taking one dose of lactulose on a daily basis should be enough to keep the ammonia level within an acceptable range. Your serum creatinine level has risen since your last visit here. According to the history provided, your Spironolactone dosing has been increased recently to help remove some of your ascites fluid. This increased diuresis, has probably contributed to your increasing creatinine levels. You should increase the amount of water you are drinking for the next few days. Do not drink excessive amounts of water, as that may lead to a decrease in your serum sodium levels. Be sure you do not increase the amount of sodium being consumed, as this will lead to retention of fluid. Call Dr. Manzano tomorrow to see if the CT scan he wanted can be done without IV contrast. Call Dr. Garcia tomorrow to report your lab test results that were found today. RETURN TO THE EMERGENCY ROOM IF ANY NEW OR WORSENING SYMPTOMS. Prescriptions: Lactulose [Kristalose 20 gm Packet] 20 gm PO DAILY #30 packet Referrals: EMERITA MANZANO MD [Primary Care Provider] - Follow up tomorrow KOBI GARCIA DO [NO LOCAL MD] - Follow up tomorrow Scribkrysten Attestation: 04/01/18 19:26 I personally performed the services described in the documentation, reviewed and edited the documentation which was dictated to the scribe in my presence, and it accurately records my words and actions. (YESSENIA LABOY) Scribe Documentation - Scribe Written by Quincy:: Quincy Piedra, 04/01/2018 19:09 acting as scribe for :: Sarah <PATRICIA GONZALEZ - Last Filed: 04/02/18 02:09>
[2018-04-01] MEDS ORDERED: LACTULOSE SYRUP 20 GM/30 ML UDCUP PO ONE (18:43)
[2018-04-01 19:33] VITALS: BP 109/61
--- NOTE | 2018-04-02 11:01 | Progress Note ---
Provider Note Provider Note: patient was sent to the ED after radiology noted that he had an elevated creatinine prior to his CT scan there is documentation in the chart that there has not been a discussion with the patient unfortunately this is false he had been seen in the office and patient has been very non complaint he told me in the office that he stopped drinking since february, he tells the ED physician 9 days ago his diuretic therapy had been increased since he was not on maximal diuretics and had been having repeated paracentesis he had an EGD done and had varices banded he was counselled on salt intake . His CT scan was scheduled to see if he had portal vein thrombosis to see if he could be a candidate for possible TIPS patient was referred to Dr Garth Atkins of [facility] for liver transplant evaluation. all of this was discussed with patient and patient himself may be prone to forgetfulness, but is always present during discussion his labs have been noted on discharge.
== END 2018-04-01 19:36 | disposition home or self-care (01) ==
LOC: ER 14:27
DX: N18.3 Chronic kidney disease, stage 3 (moderate) (principal); E72.20 Disorder of urea cycle metabolism, unspecified; K70.31 Alcoholic cirrhosis of liver with ascites; Z88.0 Allergy status to penicillin; Z90.49 Acquired absence of other specified parts of digestive tract
CPT/HCPCS: 99283; 36415; 82962; 82140; 82150; 83690; 85025; 80053; A9270; 82565

== ENCOUNTER → 2018-04-01 | Outpatient (CLI) | payer OTHER | LOC: RAD 13:41 | PROVIDERS: ATTEND Internal Medicine Gastroenterology | DX: K70.31 Alcoholic cirrhosis of liver with ascites (principal) | CPT/HCPCS: 82565 ==

== ENCOUNTER 2018-04-15 08:28 | Inpatient (IN) | payer OTHER, MEDICARE ==
--- NOTE | 2018-04-15 09:05 | ER Document Report ---
ED General - General Stated Complaint: FAILURE TO THRIVE Time Seen by Provider: 04/15/18 08:29 Notes: 68-year-old male with cirrhosis apparently on medications who presents with altered mental status after reportedly not taking any of his meds for about 3 days. Bedbound now and altered. Patient cannot give a history. TRAVEL OUTSIDE OF THE [place] IN LAST 30 DAYS: No - Related Data Allergies/Adverse Reactions: Penicillins Allergy (Verified 04/15/18 09:20) Urticaria FLU VACCINE Allergy (Uncoded 04/15/18 09:20) FELT COLD, SKIN CLAMY Past Medical History - General Cannot obtain history due to: Dementia - Social History Smoking Status: Unknown if Ever Smoked Family History: None - Past Medical History Cardiac Medical History: Reports: Hx Hypertension - JUST HX OF, NO LONGER ON MEDICATION Denies: Hx Coronary Artery Disease, Hx Heart Attack Pulmonary Medical History: Denies: Hx Asthma, Hx Bronchitis, Hx COPD, Hx Pneumonia Neurological Medical History: Denies: Hx Cerebrovascular Accident, Hx Seizures Renal/ Medical History: Denies: Hx Peritoneal Dialysis Musculoskeletal Medical History: Denies Hx Arthritis Past Surgical History: Reports: Hx Cholecystectomy, Hx Orthopedic Surgery, Hx Tonsillectomy - Immunizations Hx Diphtheria, Pertussis, Tetanus Vaccination: No - UNSURE Review of Systems - Review of Systems Notes: REVIEW OF SYSTEMS PHYSICAL EXAMINATION General: Chronically ill-appearing Head: Atraumatic, normocephalic ENT: Mouth normal, oropharynx moist, no exudates or tonsillar enlargement Eyes: Conjunctiva normal, pupils equal, lids normal Neck: No JVD, supple, no guarding CVS: Normal rate, regular rhythm, no murmurs Resp: No resp distress, equal and normal breath sounds bilaterally GI: Nondistended, soft, no tenderness to palpation, no rebound or guarding Ext: No deformities, no edema, normal range of motion in upper and lower ext Back: No CVA or midline TTP Skin: Jaundiced throughout Lymphatic: No lymphadeopathy noted Neuro: Awake but slightly less alert, not really responding to questions but eyes are open. We will not follow commands so unable to assess asterixis. -: Yes ROS unobtainable due to patient's medical condition Physical Exam - Vital signs Vitals: Resp Pulse Ox 14 100 04/15/18 08:36 04/15/18 08:36 Course - Re-evaluation Re-evalutation: 04/15/18 10:01 Altered mental status in the setting of alcoholic liver disease. Cannot tell if he has active assist but he is quite altered. Protecting his airway. I have sent labs including ammonia LFTs and ordered a head CT in case of a spontaneous subdural or other brain hemorrhage. Labs had to be redrawn. CT looks negative. Reassessed at 10 AM, now climbing out of bed hallucinating is at the bedside and states that there is no way he could have had alcohol his last alcoholic intake was 3 months ago and she g shashank him all his meds. She says he stopped taking his medication because it made him dizzy and has been increasingly altered and combative since then. I will give him intramuscular Geodon for safety and behavioral control pending his labs and then attempt lactulose which may need to be done by NG tube or rectal enema. We will plan for admission for hepatic encephalopathy. Unlikely to be delirium tremens. 04/15/18 12:02 G-tube placed. Discussed with Olya Baires SUIT MAKER for the hospitalist service will admit. Patient is calm and cooperative after NG tube and is getting lactulose. - Vital Signs Vital signs: Temp Pulse Resp BP Pulse Ox 98.5 F 14 100 04/15/18 08:57 04/15/18 08:36 04/15/18 08:36 - Laboratory Result Diagrams: 04/15/18 08:39 04/15/18 09:33 Laboratory results interpreted by me: 04/15/18 04/15/18 04/15/18 08:39 08:39 09:33 RBC 3.44 L Hgb 11.8 L Hct 33.3 L MCH 34.5 H RDW 14.2 H PT 16.1 H Sodium 130.3 L Potassium 5.5 H Chloride 94 L BUN 26 H Creatinine 1.84 H Est GFR ( Amer) 45 L Est GFR (Non-Af Amer) 37 L Glucose 116 H Total Bilirubin 5.5 H Direct Bilirubin 2.6 H AST 64 H Ammonia Total Protein 8.4 H 04/15/18 09:33 RBC Hgb Hct MCH RDW PT Sodium Potassium Chloride BUN Creatinine Est GFR ( Amer) Est GFR (Non-Af Amer) Glucose Total Bilirubin Direct Bilirubin AST Ammonia 124.0 H Total Protein Critical Care Note - Critical Care Note Total time excluding time spent on procedures (mins): 35 Comments: The above patient is critically ill. Not including procedures, but including direct re-evaluations, speaking with patient and/or consultants, interpreting results, and documenting, I spent the total amount of minute listed listed above on critical care time Discharge - Discharge Clinical Impression: Hepatic encephalopathy Condition: Fair Disposition: ADMITTED INPATIENT Admitting Provider: Hospitalist Unit Admitted: Medical Floor
[2018-04-15 09:16] LABS: ABSOLUTE BASOPHILS # (AUTO) 0.1 10^3/uL (0.0-0.2); ABSOLUTE EOSINOPHILS # (AUTO) 0.1 10^3/uL (0.0-0.6); ABSOLUTE MONOCYTES (AUTO) 0.8 10^3/uL (0.1-1.4); TOTAL CELLS COUNTED % (AUTO) 100 %
[2018-04-15 09:20] LABS: ABSOLUTE NEUT (AUTO) 7.1 10^3/uL (1.7-8.2); BASOPHILS % (AUTO) 0.8 % (0-2); EOSINOPHILS % (AUTO) 0.6 % (0-6); HEMATOCRIT 33.3 % (37.9-51.0); HEMOGLOBIN 11.8 g/dL (13.5-17.0); LYMPHOCYTES % (AUTO) 20.3 % (13-45); MEAN CORPUSCULAR HEMOGLOBIN 34.5 pg (27.0-33.4); MEAN CORPUSCULAR HGB CONC 35.5 g/dL (32.0-36.0); MEAN CORPUSCULAR VOLUME 97 fl (80-97); MONOCYTES % (AUTO) 8.1 % (3-13); PLATELET COUNT 247 10^3/uL (150-450); RED BLOOD COUNT 3.44 10^6/uL (4.35-5.55); RED CELL DISTRIBUTION WIDTH 14.2 % (11.5-14.0); SEGMENTED NEUTROPHILS % (AUTO) 70.2 % (42-78); WHITE BLOOD COUNT 10.1 10^3/uL (4.0-10.5)
[2018-04-15 09:37] LABS: INTERNATIONAL RATION (INR) 1.23; PROTHROMBIN TIME 16.1 SEC (11.4-15.4)
[2018-04-15] MEDS ORDERED: ZIPRASIDONE MESYLATE INJ/PF 20 MG SDV IM ONE (10:01)
[2018-04-15 10:06] LABS: ALANINE AMINOTRANSFERASE 27 U/L (21-72); ALBUMIN 3.9 g/dL (3.5-5.0); ALKALINE PHOSPHATASE 126 U/L (38-126); ANION GAP 14 (5-19); ASPARTATE AMINO TRANSFERASE 64 U/L (17-59); BILIRUBIN,DIRECT 2.6 mg/dL (0.0-0.4); BILIRUBIN,TOTAL 5.5 mg/dL (0.2-1.3); BLOOD UREA NITROGEN 26 mg/dL (7-20); CALCIUM 9.5 mg/dL (8.4-10.2); CARBON DIOXIDE 22 mmol/L (22-30); CHLORIDE 94 mmol/L (98-107); GLUCOSE 116 mg/dL (75-110); POTASSIUM 5.5 mmol/L (3.6-5.0); SODIUM 130.3 mmol/L (137-145); TOTAL PROTEIN 8.4 g/dL (6.3-8.2)
[2018-04-15] MEDS ORDERED: LACTULOSE SYRUP 20 GM/30 ML UDCUP NG ONE (10:16)
--- NOTE | 2018-04-15 10:48 | RADIOLOGY REPORT (SQ) ---
EXAM DESCRIPTION: CT HEAD WITHOUT COMPLETED DATE/TIME: 04/15/2018 9:54 am REASON FOR STUDY: ams esld COMPARISON: None. TECHNIQUE: Axial images acquired through the brain without intravenous contrast. Images reviewed wi th bone, brain and subdural windows. Additional sagittal and coronal reconstructions were generated. Images stored on PACS. All CT scanners at this facility use dose modulation, iterative reconstruction, and/or weight based d osing when appropriate to reduce radiation dose to as low as reasonably achievable (ALARA). [facility]: Dose Right [facility]: CareDose [facility]: Dose Right [facility]: Teradose 4D [facility]: Smart Cera[employer]ix RADIATION DOSE: CT Rad equipment meets quality standard of care and radiation dose reduction techniq ues were employed. CTDIvol: 53.2 mGy. DLP: 1150 mGy-cm. mGy. LIMITATIONS: None. FINDINGS: VENTRICLES: Normal size and contour. CEREBRUM: No masses. No hemorrhage. No midline shift. No evidence for acute infarction. Normal gra y/white matter differentiation. No areas of low density in the white matter. CEREBELLUM: No masses. No hemorrhage. No alteration of density. No evidence for acute infarction. EXTRAAXIAL SPACES: No fluid collections. No masses. ORBITS AND GLOBE: No intra- or extraconal masses. Normal contour of globe without masses. CALVARIUM: No fracture. PARANASAL SINUSES: No fluid or mucosal thickening. SOFT TISSUES: No mass or hematoma. OTHER: No other significant finding. IMPRESSION: NO ACUTE INTRACRANIAL IMAGING FINDINGS. EVIDENCE OF ACUTE STROKE: NO. COMMENT: Quality ID # [id number]: Final reports with documentation of one or more dose reduction techniques (e.g., Automated exposure control, adjustment of the mA and/or kV according to patient size, use of iterative reconstruction technique) TECHNICAL DOCUMENTATION: JOB ID: [id number] [employer]- All Rights Reserved Reading location - IP/workstation name: [email or web address]
--- NOTE | 2018-04-15 11:29 | RADIOLOGY REPORT (SQ) ---
EXAM DESCRIPTION: CHEST SINGLE VIEW COMPLETED DATE/TIME: 04/15/2018 11:11 am REASON FOR STUDY: NG tube placement COMPARISON: AP chest 03/07/2018 EXAM PARAMETERS: NUMBER OF VIEWS: One view. TECHNIQUE: Single frontal radiographic view of the chest acquired. RADIATION DOSE: NA LIMITATIONS: None. FINDINGS: LUNGS AND PLEURA: No opacities, masses or pneumothorax. No pleural effusion. MEDIASTINUM AND HILAR STRUCTURES: No masses. Contour normal. HEART AND VASCULAR STRUCTURES: Heart normal in size. Normal vasculature. BONES: No acute findings. HARDWARE: Nasogastric tube tip and side port in the stomach. Clips right upper quadrant post cholecy stectomy OTHER: No other significant finding. IMPRESSION: Nasogastric tube tip and side port in the stomach TECHNICAL DOCUMENTATION: JOB ID: [id number] [employer]- All Rights Reserved Reading location - IP/workstation name: [email or web address]
[2018-04-15] MEDS ORDERED: IPRATROPIUM/ALBUTEROL 0.5-2.5 MG/3 ML AMPUL NEB PRN (12:28)
[2018-04-15] MEDS ORDERED: ACETAMINOPHEN 325 MG TABLET PO PRN (12:28)
[2018-04-15] MEDS ORDERED: ONDANSETRON HCL INJ/PF 4 MG/2 ML SDV IV PRN (12:36)
[2018-04-15] MEDS ORDERED: GLUCAGON,HUMAN RECOMB 1 MG INJ SUBCUT PRN (12:36)
[2018-04-15] MEDS ORDERED: MAGNESIUM HYDROXIDE SUSP 30 ML UDCUP PO PRN (12:36)
[2018-04-15] MEDS ORDERED: DEXTROSE 50%-WATER 25 GM/50 ML DISP.SYRIN IV PRN ×2 (12:36)
[2018-04-15] MEDS ORDERED: DEXTROSE 40% GEL 15 GM TUBE PO PRN ×2 (12:36)
[2018-04-15] MEDS ORDERED: MAG HYDROX/AL HYDROX/SIMETH SUSP 30 ML UDCUP PO PRN (12:36)
--- NOTE | 2018-04-15 13:18 | EKG REPORT ---
SEVERITY:- ABNORMAL ECG - SINUS RHYTHM LAD, CONSIDER LEFT ANTERIOR FASCICULAR BLOCK ABNRM R PROG, CONSIDER ASMI OR LEAD PLACEMENT : Confirmed by: Kristopher Parra MD 15-Apr-2018 13:16:56
[2018-04-15] MEDS: NORMAL SALINE 1000 ML 1,000 ML IV PRN (14:59)
[2018-04-15] MEDS ORDERED: FUROSEMIDE 40 MG TABLET PO SCH (18:00)
[2018-04-15] MEDS: LACTULOSE SYRUP 20 GM/30 ML UDCUP NG SCH (18:28)
--- NOTE | 2018-04-15 19:26 | PDOC H&P ---
History of Present Illness Admission Date/PCP: 04/15/18 10:25 EMERITA YANG MD Patient complains of: altered mental status History of Present Illness: ROX JENSEN is a 68 year old male with a past medical history significant for ESLD secondary EtOH abuse and reported hepatitis C, CKD 2, obesity, prostate cancer, GERD, and anemia. Patient underwent outpatient EGD by Dr. Yang last week with variceal banding. Dr. Yang called to provide some background; patient has been intermittently noncompliant. He was mid- TIPS procedure workup last year when he stopped following up. He presented to the emergency department today via EMS with his for report of 3 days of progressively worsening altered mental status secondary to refusal to take his home medication regiment. The patient reports that this morning the patient was unable to recognize her, answer questions, or follow directions; was very repetitive in nature. At the time of my assessment, the patient had been sedated with Geodon due to attempts to remove the lines. Evaluation in the emergency department revealed chronic anemia (at baseline, Hgb 11.8), INR 1.23, mild hyponatremia (130.3), hyperkalemia (5.5), A/CKI (creatinine 1.84 up from baseline of 1.25), elevated LFTs, and an ammonia of 124. Serum alcohol was negative. Chest x-ray was negative for acute cardiopulmonary findings, EKG demonstrated NSR, Head CT was negative for intracranial findings. He is referred to the hospitalist service for admission and management of hepatic encephalopathy. Past Medical History Cardiac Medical History: Reports: Hypertension Denies: Coronary Artery Disease, Myocardial Infarction Pulmonary Medical History: Denies: Asthma, Bronchitis, Chronic Obstructive Pulmonary Disease (COPD), Pneumonia EENT Medical History: Reports: None Neurological Medical History: Reports: None Denies: Seizures Endocrine Medical History: Reports: None Renal/ Medical History: Reports: Chronic Kidney Disease Malignancy Medical History: Reports: None GI Medical History: Reports: Gastroesophageal Reflux Disease, Hepatitis - Chronic Hep C, Other - ESLD Musculoskeltal Medical History: Denies: Arthritis Skin Medical History: Reports: None Psychiatric Medical History: Reports: Alcohol Dependency, Depression Traumatic Medical History: Reports: None Hematology: Reports: Anemia Infectious Medical History: Reports: Hepatitis C Past Surgical History Past Surgical History: Reports: Cholecystectomy, Orthopedic Surgery, Tonsillectomy, Other - Esophageal variceal banding Social History Information Source: Relative - Patient's Lives with: Spouse/Significant other Smoking Status: Former Smoker Frequency of Alcohol Use: Heavy Last Alcohol Use: 02/13/18 Hx Recreational Drug Use: No Drugs: None Hx Prescription Drug Abuse: No - Advance Directive Resuscitation Status: Do Not Resuscitate Surrogate healthcare decision maker:: Patient's , Mary Jnesen Family History Family History: None Parental Family History Reviewed: Yes Children Family History Reviewed: Yes Sibling(s) Family History Reviewed.: Yes Medication/Allergy Home Medications: Albuterol Sulfate [Proair HFA Inhalation Aerosol 8.5 gm MDI] 2 puff IH Q6HP PRN 04/15/18 Ergocalciferol (Vitamin D2) [Drisdol 50,000 unit (1.25MG) Capsule] 50,000 unit PO MO@1000 04/15/18 Furosemide [Lasix 40 mg Tablet] 40 mg PO BID 04/15/18 Losartan Potassium [Cozaar 25 mg Tablet] 25 mg PO DAILY 04/15/18 Magnesium Oxide [Mag-Ox 400 mg Tablet] 400 mg PO DAILY 04/15/18 Naltrexone 50mg 50 mg PO DAILY 04/15/18 Ondansetron [Ondansetron Odt] 8 mg SL DAILYP PRN 04/15/18 Rabeprazole Sodium [Aciphex] 20 mg PO DAILY 04/15/18 Rifaximin [Xifaxan 550 mg Tablet] 550 mg PO Q12 04/15/18 Spironolactone [Aldactone 100 mg Tablet] 100 mg PO Q12 04/15/18 Allergies/Adverse Reactions: Penicillins Allergy (Verified 04/15/18 09:20) Urticaria FLU VACCINE Allergy (Uncoded 04/15/18 09:20) FELT COLD, SKIN CLAMY Review of Systems ROS unobtainable: Due to mental status Physical Exam Vital Signs: Temp Pulse Resp BP Pulse Ox 97.5 F 79 16 113/69 100 04/15/18 17:11 04/15/18 17:11 04/15/18 17:11 04/15/18 17:11 04/15/18 17:11 Intake & Output 04/14/18 04/15/18 04/16/18 06:59 06:59 06:59 Weight 67 kg General appearance: PRESENT: disheveled, well-developed Head exam: PRESENT: atraumatic, normocephalic Eye exam: PRESENT: EOMI, PERRLA, scleral icterus Ear exam: PRESENT: normal external ear exam Mouth exam: PRESENT: moist, tongue midline Neck exam: ABSENT: carotid bruit, JVD, lymphadenopathy, thyromegaly Respiratory exam: PRESENT: clear to auscultation jose luis, symmetrical, unlabored. ABSENT: rales, rhonchi, wheezes Cardiovascular exam: PRESENT: RRR, +S1, +S2. ABSENT: diastolic murmur, rubs, systolic murmur Pulses: PRESENT: normal dorsalis pedis pul Vascular exam: PRESENT: normal capillary refill GI/Abdominal exam: PRESENT: ascites, distended, normal bowel sounds, soft, other - NG tube. ABSENT: guarding, mass, organolmegaly, rebound, tenderness Rectal exam: PRESENT: deferred Extremities exam: ABSENT: pedal edema Neurological exam: PRESENT: other - Currently sedated with Geodon; responsive to pain. Skin exam: PRESENT: dry, jaundice, warm, other - Stage II sacral decubitus wound, present on arrival. ABSENT: cyanosis, rash Results Laboratory Results: 04/15/18 08:39 04/15/18 09:33 04/15/18 04/15/18 04/15/18 08:39 08:39 08:39 WBC 10.1 RBC 3.44 L Hgb 11.8 L Hct 33.3 L MCV 97 MCH 34.5 H MCHC 35.5 RDW 14.2 H Plt Count 247 Seg Neutrophils % 70.2 Lymphocytes % 20.3 Monocytes % 8.1 Eosinophils % 0.6 Basophils % 0.8 Absolute Neutrophils 7.1 Absolute Lymphocytes 2.0 Absolute Monocytes 0.8 Absolute Eosinophils 0.1 Absolute Basophils 0.1 Sodium Cancelled Cancelled Potassium Cancelled Cancelled Chloride Cancelled Cancelled Carbon Dioxide Cancelled Cancelled Anion Gap Cancelled Cancelled BUN Cancelled Cancelled Creatinine Cancelled Cancelled Est GFR ( Amer) Cancelled Cancelled Est GFR (Non-Af Amer) Cancelled Cancelled Glucose Cancelled Cancelled Calcium Cancelled Cancelled Total Bilirubin Cancelled AST Cancelled ALT Cancelled Alkaline Phosphatase Cancelled Ammonia Total Protein Cancelled Albumin Cancelled 04/15/18 04/15/18 04/15/18 08:39 09:33 09:33 WBC RBC Hgb Hct MCV MCH MCHC RDW Plt Count Seg Neutrophils % Lymphocytes % Monocytes % Eosinophils % Basophils % Absolute Neutrophils Absolute Lymphocytes Absolute Monocytes Absolute Eosinophils Absolute Basophils Sodium 130.3 L Potassium 5.5 H Chloride 94 L Carbon Dioxide 22 Anion Gap 14 BUN 26 H Creatinine 1.84 H Est GFR ( Amer) 45 L Est GFR (Non-Af Amer) 37 L Glucose 116 H Calcium 9.5 Total Bilirubin 5.5 H AST 64 H ALT 27 Alkaline Phosphatase 126 Ammonia Cancelled 124.0 H Total Protein 8.4 H Albumin 3.9 Impressions: Chest X-Ray 04/15/18 00:00 IMPRESSION: Nasogastric tube tip and side port in the stomach Head CT 04/15/18 09:14 IMPRESSION: NO ACUTE INTRACRANIAL IMAGING FINDINGS. EVIDENCE OF ACUTE STROKE: NO. Assessment & Plan - Diagnosis (1) Hepatic encephalopathy Is this a current diagnosis for this admission?: Yes Plan: Secondary to noncompliance with outpatient medication regiment; per patient has been refusing all medications for 3-[address] Yang who completed an outpatient EGD last week finding an esophageal varices which was banded. Dr. Yang confirms history of intermittent noncompliance. Had previously recommended TIPS procedure, the patient did not complete workup as directed. Ammonia elevated to 124. Meld score: 19.6% three-month mortality. Patient will be admitted to the medical floor on continuous cardiac telemetry. NG tube has been placed for medication administration. Lactulos 20 gm every 6 hours. Resume lower dose Spironolactone and furosemide secondary to hypotension; will increase his blood pressure tolerates. Gentle maintenance IV fluids; nightly banana bag Acute hepatic encephalopathy dosed rifaximin; 550 mg twice daily. Fall and aspiration precautions. Geodon IM every 6 hours as needed for agitation concerning for self-injurious behaviors. Palliative care referral at the patient's 's request. Leaning toward hospice admission, however, would like for the patient's mentation to improve enough to participate in this conversation. Discharge planning is consulted. (2) Anemia Qualifiers: Anemia type: unspecified type Qualified Code(s): D64.9 - Anemia, unspecified Is this a current diagnosis for this admission?: Yes Plan: Hgb 11.8; at baseline. Likely secondary to chronic malnutrition (hx EtOH abuse; recently discontinued drinking). Will obtain anemia panel in the morning. Continue to monitor with daily CBC. Registered dietitian is consulted. Multivitamin with iron supplementation. (3) Hyponatremia Is this a current diagnosis for this admission?: Yes Plan: IV fluids as above. Have resumed a lower dose of spironolactone and Lasix; will titrate as tolerated. Daily chemistries. (4) Umzhb-es-[id number] kidney injury Is this a current diagnosis for this admission?: Yes Plan: Baseline creatinine of 1.25; elevated 1.94 2 weeks ago. Today creatinine is 1.84 with BUN of 26. IV fluids as above. Avoid nephrotoxic medications as able. Daily chemistries. (5) Hyperammonemia Is this a current diagnosis for this admission?: Yes Plan: Lactulose 20 g every 6 hours via NG tube. Remaining plan of care as above. - Time Time Spent: 50 to 70 Minutes Medications reviewed and adjusted accordingly: Yes - Inpatient Certification Based on my medical assessment, after consideration of the patient's comorbidities, presenting symptoms, or acuity I expect that the services needed warrant INPATIENT care.: Yes I certify that my determination is in accordance with my understanding of Medicare's requirements for reasonable and necessary INPATIENT services [42 CFR 412.3e].: Yes Medical Necessity: Significant Comorbidiites Make Outpatient Treatment Too Risky, Need Close Monitoring Due to Risk of Patient Decompensation, Need For IV Fluids, Need For Continuous Telemetry Monitoring
[2018-04-15 19:42] LABS: ABSOLUTE RETICS # 0.056 10^6/uL (0.028-0.122)
[2018-04-15 19:49] LABS: IRON(TIBC) 196.9 ug/dL (49-181)
[2018-04-15 20:58] LABS: FOLATE > 20.00 ng/mL (>2.76)
[2018-04-15] MEDS ORDERED: THIAMINE HCL 100 MG, FOLIC ACID 1 MG in NORMAL SALINE 250 ML IV SCH (21:30)
[2018-04-15] MEDS ORDERED: NORMAL SALINE 1000 ML 1,000 ML with POTASSIUM CHLORIDE 20 MEQ, MAGNESIUM SULFATE 8 MEQ,... IV SCH ×5 (22:00)
[2018-04-15] MEDS: RIFAXIMIN 550 MG TABLET PO SCH (22:31)
[2018-04-15] MEDS: FAMOTIDINE INJ/PF 20 MG/2 ML SDV IV SCH (22:31)
[2018-04-15] MEDS: THIAMINE HCL 100 MG TABLET PO SCH (22:31)
[2018-04-15] MEDS: FOLIC ACID 1 MG TABLET PO SCH (22:31)
[2018-04-16] MEDS: LACTULOSE SYRUP 20 GM/30 ML UDCUP NG SCH ×5 (00:35→18:43)
[2018-04-16] MEDS: ZIPRASIDONE MESYLATE INJ/PF 20 MG SDV IM PRN ×2 (05:30→12:10)
[2018-04-16] MEDS: NORMAL SALINE 1000 ML 1,000 ML IV PRN ×2 (05:31→19:38)
[2018-04-16 08:06] LABS: INTERNATIONAL RATION (INR) 1.34; PROTHROMBIN TIME 17.3 SEC (11.4-15.4)
[2018-04-16 08:30] LABS: ALANINE AMINOTRANSFERASE 26 U/L (21-72); ALBUMIN 3.6 g/dL (3.5-5.0); ALKALINE PHOSPHATASE 122 U/L (38-126); ANION GAP 12 (5-19); ASPARTATE AMINO TRANSFERASE 52 U/L (17-59); BILIRUBIN,DIRECT 3.1 mg/dL (0.0-0.4); BILIRUBIN,TOTAL 6.2 mg/dL (0.2-1.3); BLOOD UREA NITROGEN 21 mg/dL (7-20); CALCIUM 9.5 mg/dL (8.4-10.2); CARBON DIOXIDE 24 mmol/L (22-30); CHLORIDE 99 mmol/L (98-107); GLUCOSE 103 mg/dL (75-110); PHOSPHORUS 4.6 mg/dL (2.5-4.5); POTASSIUM 4.6 mmol/L (3.6-5.0); SODIUM 135.2 mmol/L (137-145); TOTAL PROTEIN 8.2 g/dL (6.3-8.2)
[2018-04-16 08:31] LABS: HEMATOCRIT 30.6 % (37.9-51.0); HEMOGLOBIN 10.8 g/dL (13.5-17.0); MEAN CORPUSCULAR HEMOGLOBIN 33.9 pg (27.0-33.4); MEAN CORPUSCULAR HGB CONC 35.4 g/dL (32.0-36.0); MEAN CORPUSCULAR VOLUME 96 fl (80-97); PLATELET COUNT 171 10^3/uL (150-450); RED CELL DISTRIBUTION WIDTH 14.5 % (11.5-14.0); WHITE BLOOD COUNT 8.9 10^3/uL (4.0-10.5)
[2018-04-16] MEDS ORDERED: SPIRONOLACTONE 25 MG TABLET PO SCH (10:00)
[2018-04-16] MEDS: MULTIVITAMINS W-IRON TABLET, CHEWABLE PO SCH (10:24)
[2018-04-16] MEDS: RIFAXIMIN 550 MG TABLET PO SCH ×2 (10:25→22:23)
[2018-04-16] MEDS: FOLIC ACID 1 MG TABLET PO SCH (10:25)
[2018-04-16] MEDS: THIAMINE HCL 100 MG TABLET PO SCH (10:26)
[2018-04-16] MEDS: FUROSEMIDE 20 MG TABLET PO SCH ×2 (10:27→18:42)
[2018-04-16] MEDS: FAMOTIDINE INJ/PF 20 MG/2 ML SDV IV SCH ×2 (10:55→22:23)
--- NOTE | 2018-04-16 16:55 | PDOC PROGRESS REPORT ---
Subjective Progress Note for:: 04/16/18 Subjective:: The patient is a 68 year old male with a past medical history significant for ESLD secondary EtOH abuse and reported hepatitis C, CKD 2, obesity, prostate cancer, GERD, and anemia who was admitted 04/15/2018 for hepatic encephalopathy Patient was seen on morning rounds. He was found resting in bed comfortably on room air; NG tube in place, remains in soft limb restraints due to multiple attempts to pull out NG tube and IV line. Patient's is at bedside; revi ewed his current labs, chronic condition of liver disease, and his prognosis. Meld score 22 (19.6% 3 month mortality). Discussed that with time, his mentation may improve slightly but he will never return to independent living and that each time he becomes acutely ill he is likely to currently worsen. Patient's requests hospice consultation; strongly leaning towards hospice services at this time. The patient is awake, alert, oriented to self and place but answers all other questions inappropriately. He does ask multiple times to go home. He is unable to effectively participate in goals of care discussion today. Patient's has no other questions or concerns at this time. No concerns per nursing. Reason For Visit: HEPATIC ENCEPHALOPATHY Physical Exam Vital Signs: Temp Pulse Resp BP Pulse Ox 97.6 F 100 16 132/71 H 100 04/16/18 15:38 04/16/18 15:38 04/16/18 15:38 04/16/18 15:38 04/16/18 15:38 Intake & Output 04/15/18 04/16/18 04/17/18 06:59 06:59 06:59 Intake Total 1000 Output Total 400 Balance 600 Weight 68.2 kg General appearance: PRESENT: no acute distress, thin, well-developed Head exam: PRESENT: atraumatic, normocephalic Eye exam: PRESENT: conjunctiva pink, EOMI, PERRLA, scleral icterus Ear exam: PRESENT: normal external ear exam Mouth exam: PRESENT: moist, tongue midline Neck exam: ABSENT: carotid bruit, JVD, lymphadenopathy, thyromegaly Respiratory exam: PRESENT: clear to auscultation jose luis, symmetrical, unlabored. ABSENT: rales, rhonchi, wheezes Cardiovascular exam: PRESENT: RRR, +S1, +S2. ABSENT: diastolic murmur, rubs, systolic murmur Pulses: PRESENT: normal dorsalis pedis pul Vascular exam: PRESENT: normal capillary refill GI/Abdominal exam: PRESENT: ascites, distended, normal bowel sounds, soft, other - NG tube. ABSENT: guarding, mass, organolmegaly, rebound, tenderness Rectal exam: PRESENT: deferred Extremities exam: PRESENT: full ROM. ABSENT: calf tenderness, clubbing, pedal edema Neurological exam: PRESENT: alert, awake, oriented to person, oriented to place, CN II-XII grossly intact, other - Impulsive, unable to participate in detailed conversation. Does not follow commands.. ABSENT: motor sensory deficit Psychiatric exam: PRESENT: agitated, appropriate affect, normal mood Focused psych exam: PRESENT: restlessness Skin exam: PRESENT: dry, intact, jaundice, warm. ABSENT: cyanosis, rash Results Laboratory Results: 04/16/18 07:35 04/16/18 07:35 04/15/18 04/15/18 04/16/18 08:39 09:33 07:35 WBC 8.9 RBC 3.20 L Hgb 10.8 L Hct 30.6 L MCV 96 MCH 33.9 H MCHC 35.4 RDW 14.5 H Plt Count 171 Retic Count (auto) 1.60 Absolute Retic 0.056 Sodium Potassium Chloride Carbon Dioxide Anion Gap BUN Creatinine Est GFR ( Amer) Est GFR (Non-Af Amer) Glucose Calcium Phosphorus Magnesium Iron 196.9 H TIBC 228 L % Saturation 86 Ferritin 419.00 Total Bilirubin AST ALT Alkaline Phosphatase Ammonia Total Protein Albumin Vitamin B12 808.0 Folate > 20.00 04/16/18 04/16/18 07:35 07:35 WBC RBC Hgb Hct MCV MCH MCHC RDW Plt Count Retic Count (auto) Absolute Retic Sodium 135.2 L Potassium 4.6 Chloride 99 Carbon Dioxide 24 Anion Gap 12 BUN 21 H Creatinine 1.64 H Est GFR ( Amer) 51 L Est GFR (Non-Af Amer) 42 L Glucose 103 Calcium 9.5 Phosphorus 4.6 H Magnesium 1.7 Iron TIBC % Saturation Ferritin Total Bilirubin 6.2 H AST 52 ALT 26 Alkaline Phosphatase 122 Ammonia 31.0 Total Protein 8.2 Albumin 3.6 Vitamin B12 Folate Impressions: Chest X-Ray 04/15/18 00:00 IMPRESSION: Nasogastric tube tip and side port in the stomach Head CT 04/15/18 09:14 IMPRESSION: NO ACUTE INTRACRANIAL IMAGING FINDINGS. EVIDENCE OF ACUTE STROKE: NO. Assessment & Plan - Diagnosis (1) Hepatic encephalopathy Is this a current diagnosis for this admission?: Yes Plan: Now awake and oriented to place and self. Does not follow directions; intermittently answers questions appropriately, easily becomes confused and agitated. Extremely impulsive per nursing; nearly fell out of bed today when restraints removed for range of motion. Secondary to noncompliance with outpatient medication regiment; per patient has been refusing all medications for 3-[address] Manzano who completed an outpatient EGD last week finding an esophageal varices which was banded. Dr. Manzano confirms history of intermittent noncompliance. Had previously recommended TIPS procedure, the patient did not complete workup as directed. Ammonia elevated to 124. Meld score: 22; 19.6% three-month mortality. Patient will be admitted to the medical floor on continuous cardiac telemetry. NG tube has been placed for medication administration. Lactulos 20 gm every 6 hours. Resume lower dose Spironolactone and furosemide secondary to hypotension; will increase his blood pressure tolerates. Gentle maintenance IV fluids; nightly banana bag Acute hepatic encephalopathy dosed rifaximin; 550 mg twice daily. Fall and aspiration precautions. Geodon IM every 6 hours as needed for agitation concerning for self-injurious be haviors. Currently in soft limb restraints due to multiple attempts to remove NG tube and impulsivity with poor safety awareness. Hospice referral at the patient's 's request. Discharge planning is consulted. (2) Anemia Qualifiers: Anemia type: unspecified type Qualified Code(s): D64.9 - Anemia, unspecified Is this a current diagnosis for this admission?: Yes Plan: Hgb 11.8--> 10.8; at baseline. Likely secondary to chronic malnutrition (hx EtOH abuse; recently discontinued drinking). Anemia panel confirms anemia of chronic disease. Continue to monitor with daily CBC. Registered dietitian is consulted. Multivitamin with iron supplementation. (3) Hyponatremia Is this a current diagnosis for this admission?: Yes Plan: Improved. IV fluids as above. Have resumed a lower dose of spironolactone and Lasix; will titrate as tolerated. Daily chemistries. (4) Ydwto-om-aoenknm kidney injury Is this a current diagnosis for this admission?: Yes Plan: Improved; admitted with a creatinine of 1.84 and BUN of 26. Trended down to 1.64 and 21 with gentle IV fluids. IV fluids as above. Avoid nephrotoxic medications as able. Daily chemistries. (5) Hyperammonemia Is this a current diagnosis for this admission?: Yes Plan: Resolved; ammonia 124--> 31 Continue lactulose 20 g every 6 hours via NG tube. Remaining plan of care as above. - Time Time Spent with patient: 35 or more minutes Medications reviewed and adjusted accordingly: Yes Anticipated discharge: Hospice Within: within 72 hours
[2018-04-17] MEDS: LACTULOSE SYRUP 20 GM/30 ML UDCUP NG SCH ×2 (02:50→05:33)
[2018-04-17 05:04] LABS: HEMATOCRIT 30.3 % (37.9-51.0); HEMOGLOBIN 10.4 g/dL (13.5-17.0); MEAN CORPUSCULAR HEMOGLOBIN 33.3 pg (27.0-33.4); MEAN CORPUSCULAR HGB CONC 34.5 g/dL (32.0-36.0); MEAN CORPUSCULAR VOLUME 97 fl (80-97); PLATELET COUNT 150 10^3/uL (150-450); RED BLOOD COUNT 3.13 10^6/uL (4.35-5.55); RED CELL DISTRIBUTION WIDTH 14.6 % (11.5-14.0); WHITE BLOOD COUNT 11.5 10^3/uL (4.0-10.5)
[2018-04-17 05:09] LABS: INTERNATIONAL RATION (INR) 1.41
[2018-04-17 05:29] LABS: ALANINE AMINOTRANSFERASE 24 U/L (21-72); ALKALINE PHOSPHATASE 104 U/L (38-126); ANION GAP 10 (5-19); ASPARTATE AMINO TRANSFERASE 45 U/L (17-59); BILIRUBIN,DIRECT 2.3 mg/dL (0.0-0.4); BILIRUBIN,TOTAL 5.1 mg/dL (0.2-1.3); BLOOD UREA NITROGEN 18 mg/dL (7-20); CALCIUM 8.8 mg/dL (8.4-10.2); CARBON DIOXIDE 21 mmol/L (22-30); CHLORIDE 104 mmol/L (98-107); GLUCOSE 110 mg/dL (75-110); SODIUM 135.4 mmol/L (137-145); TOTAL PROTEIN 7.1 g/dL (6.3-8.2)
[2018-04-17] MEDS ORDERED: SPIRONOLACTONE 25 MG TABLET PO SCH (10:00)
[2018-04-17] MEDS: MULTIVITAMINS W-IRON TABLET, CHEWABLE PO SCH (11:08)
[2018-04-17] MEDS: THIAMINE HCL 100 MG TABLET PO SCH (11:09)
[2018-04-17] MEDS: FOLIC ACID 1 MG TABLET PO SCH (11:09)
[2018-04-17] MEDS: RIFAXIMIN 550 MG TABLET PO SCH ×2 (11:09→21:29)
--- NOTE | 2018-04-17 14:15 | PDOC PROGRESS REPORT ---
Subjective Progress Note for:: 04/17/18 Subjective:: The patient is a 68 year old male with a past medical history significant for ESLD secondary EtOH abuse and reported hepatitis C, CKD 2, obesity, prostate cancer, GERD, and anemia who was admitted 04/15/2018 for hepatic encephalopathy Patient was seen on morning rounds with his and neighborhood planner, gibson Hassan. He was found resting in bed comfortably on room air The patient is awake, A&Ox4, and answers all questions appropriately. He has full capacity for self determination today. He does ask to be discharged to home, but is agreeable with remaining today when told that he will be allowed to eat. He asks that I review his medications for side effects because he discontinued his medications due to dizziness/lightheadedness. He states he understand that discontinuing his medications led to his admission. He states his intent to resume his medications and home health services with palliative/hospice bridge. They have no other questions or concerns. No concerns per nursing. Reason For Visit: HEPATIC ENCEPHALOPATHY Physical Exam Vital Signs: Temp Pulse Resp BP Pulse Ox 97.5 F 98 17 135/71 H 100 04/17/18 11:34 04/17/18 11:34 04/17/18 11:34 04/17/18 11:34 04/17/18 11:34 Intake & Output 04/16/18 04/17/18 04/18/18 06:59 06:59 06:59 Intake Total 1000 1270 1000 Output Total 400 300 Balance 747 554 9369 Weight 68.2 kg 70.6 kg General appearance: PRESENT: no acute distress, thin, well-developed Head exam: PRESENT: atraumatic, normocephalic Eye exam: PRESENT: conjunctiva pink, EOMI, PERRLA, scleral icterus Ear exam: PRESENT: normal external ear exam Mouth exam: PRESENT: moist, tongue midline Neck exam: ABSENT: carotid bruit, JVD, lymphadenopathy, thyromegaly Respiratory exam: PRESENT: clear to auscultation jose luis, symmetrical, unlabored. ABSENT: rales, rhonchi, wheezes Cardiovascular exam: PRESENT: RRR, +S1, +S2. ABSENT: diastolic murmur, rubs, systolic murmur Pulses: PRESENT: normal dorsalis pedis pul Vascular exam: PRESENT: normal capillary refill GI/Abdominal exam: PRESENT: ascites, normal bowel sounds, soft. ABSENT: distended, guarding, mass, organolmegaly, rebound, tenderness Rectal exam: PRESENT: deferred Extremities exam: PRESENT: full ROM. ABSENT: calf tenderness, clubbing, pedal edema Neurological exam: PRESENT: alert, awake, oriented to person, oriented to place, oriented to time, oriented to situation, CN II-XII grossly intact. ABSENT: motor sensory deficit Psychiatric exam: PRESENT: appropriate affect, normal mood. ABSENT: homicidal ideation, suicidal ideation Skin exam: PRESENT: dry, intact, warm. ABSENT: cyanosis, rash Results Laboratory Results: 04/17/18 04:25 04/17/18 04:25 04/17/18 04/17/18 04:25 04:25 WBC 11.5 H RBC 3.13 L Hgb 10.4 L Hct 30.3 L MCV 97 MCH 33.3 MCHC 34.5 RDW 14.6 H Plt Count 150 Sodium 135.4 L Potassium 4.0 Chloride 104 Carbon Dioxide 21 L Anion Gap 10 BUN 18 Creatinine 1.34 H Est GFR ( Amer) > 60 Est GFR (Non-Af Amer) 53 L Glucose 110 Calcium 8.8 Total Bilirubin 5.1 H AST 45 ALT 24 Alkaline Phosphatase 104 Total Protein 7.1 Albumin 3.0 L Impressions: Chest X-Ray 04/15/18 00:00 IMPRESSION: Nasogastric tube tip and side port in the stomach Head CT 04/15/18 09:14 IMPRESSION: NO ACUTE INTRACRANIAL IMAGING FINDINGS. EVIDENCE OF ACUTE STROKE: NO. Assessment & Plan - Diagnosis (1) Hepatic encephalopathy Is this a current diagnosis for this admission?: Yes Plan: Resolved; now A&Ox4 and answers all questions and follows commands appropriately. Secondary to noncompliance with outpatient medication regiment; per patient has been refusing all medications for 3-[address] Manzano who completed an outpatient EGD last week finding an esophageal varices which was banded. Dr. Manzano confirms history of intermittent noncompliance. Had previously recommended TIPS procedure, the patient did not complete workup as directed. Ammonia elevated to 124. Meld score: 22; 19.6% three-month mortality. Patient will be admitted to the medical floor on continuous cardiac telemetry. Lactulos 20 gm every 8 hours. Resume lower dose Spironolactone and furosemide secondary to hypotension; have increased to Spironolactone 100 mg daily and furosemide 20 mg twice daily. IV fluids are discontinued. Acute hepatic encephalopathy dosed rifaximin; 550 mg twice daily. Fall and aspiration precautions. Hospice referral at the patient's 's request. Discharge planning is consulted. (2) Anemia Qualifiers: Anemia type: unspecified type Qualified Code(s): D64.9 - Anemia, unspecified Is this a current diagnosis for this admission?: Yes Plan: Hgb 11.8--> 10.4; at baseline. Likely secondary to chronic malnutrition (hx EtOH abuse; recently discontinued drinking). Anemia panel confirms anemia of chronic disease. Continue to monitor with daily CBC. Registered dietitian is consulted. Multivitamin with iron supplementation. (3) Hyponatremia Is this a current diagnosis for this admission?: Yes Plan: Improved. Have resumed a lower dose of spironolactone and Lasix; will titrate as t olerated. Daily chemistries. (4) Dnkoy-vl-ntddccu kidney injury Is this a current diagnosis for this admission?: Yes Plan: Improved; admitted with a creatinine of 1.84 and BUN of 26. Trended down to 1.34 and 18 with gentle IV fluids. IV fluids have been discontinued; encourage p.o. fluids. Avoid nephrotoxic medications as able. Daily chemistries. (5) Hyperammonemia Is this a current diagnosis for this admission?: Yes Plan: Resolved; ammonia 124--> 31 Continue lactulose 20 g every 8 hours Remaining plan of care as above. (6) History of ETOH abuse Is this a current diagnosis for this admission?: Yes Plan: Daily multivitamin, thiamine, and folic acid supplementation. - Time Time Spent with patient: 25-34 minutes Medications reviewed and adjusted accordingly: Yes Anticipated discharge: Home with Homehealth Within: within 24 hours
[2018-04-17] MEDS: LACTULOSE SYRUP 20 GM/30 ML UDCUP PO SCH ×2 (15:25→21:29)
[2018-04-17] MEDS: FUROSEMIDE 20 MG TABLET PO SCH (18:31)
[2018-04-17] MEDS: FAMOTIDINE 20 MG TABLET PO SCH (21:29)
[2018-04-18] MEDS: LACTULOSE SYRUP 20 GM/30 ML UDCUP PO SCH (06:11)
[2018-04-18 06:56] LABS: HEMATOCRIT 29.4 % (37.9-51.0); HEMOGLOBIN 10.4 g/dL (13.5-17.0); MEAN CORPUSCULAR HEMOGLOBIN 33.6 pg (27.0-33.4); MEAN CORPUSCULAR HGB CONC 35.5 g/dL (32.0-36.0); MEAN CORPUSCULAR VOLUME 95 fl (80-97); RED BLOOD COUNT 3.11 10^6/uL (4.35-5.55); RED CELL DISTRIBUTION WIDTH 14.1 % (11.5-14.0); WHITE BLOOD COUNT 12.8 10^3/uL (4.0-10.5)
[2018-04-18 07:16] LABS: ALANINE AMINOTRANSFERASE 31 U/L (21-72); ALBUMIN 2.9 g/dL (3.5-5.0); ALKALINE PHOSPHATASE 115 U/L (38-126); ANION GAP 10 (5-19); ASPARTATE AMINO TRANSFERASE 51 U/L (17-59); BILIRUBIN,DIRECT 2.3 mg/dL (0.0-0.4); BLOOD UREA NITROGEN 20 mg/dL (7-20); CALCIUM 8.6 mg/dL (8.4-10.2); CARBON DIOXIDE 22 mmol/L (22-30); CHLORIDE 99 mmol/L (98-107); GLUCOSE 107 mg/dL (75-110); POTASSIUM 4.1 mmol/L (3.6-5.0); SODIUM 130.7 mmol/L (137-145)
[2018-04-18 07:23] LABS: PLATELET COUNT 175 10^3/uL (150-450)
[2018-04-18] MEDS: MULTIVITAMINS W-IRON TABLET, CHEWABLE PO SCH (09:06)
[2018-04-18] MEDS: FUROSEMIDE 20 MG TABLET PO SCH (09:06)
[2018-04-18] MEDS: FAMOTIDINE 20 MG TABLET PO SCH (09:06)
[2018-04-18] MEDS: FOLIC ACID 1 MG TABLET PO SCH (09:06)
[2018-04-18] MEDS: RIFAXIMIN 550 MG TABLET PO SCH (09:07)
[2018-04-18] MEDS: THIAMINE HCL 100 MG TABLET PO SCH (09:07)
[2018-04-18] MEDS ORDERED: SPIRONOLACTONE 25 MG TABLET PO SCH (10:00)
[2018-04-18 12:09] VITALS: BP 117/64
--- NOTE | 2018-04-18 16:06 | PDOC DISCHARGE SUMMARY ---
General - Admit/Disc Date/PCP Admission Date/Primary Care Provider: 04/15/18 10:25 EMERITA YANG MD Discharge Date: 04/18/18 - Discharge Diagnosis (1) Hepatic encephalopathy Is this a current diagnosis for this admission?: Yes Summary: Resolved; now A&Ox4 and answers all questions and follows commands appropriately. Secondary to noncompliance with outpatient medication regiment; per patient has been refusing all medications for 3-[address] Yang who completed an outpatient EGD last week finding an esophageal varices which was banded. Dr. Yang confirms history of intermittent noncompliance. Had previously recommended TIPS procedure, the patient did not complete workup as directed. Ammonia elevated to 124. Meld score: 22; 19.6% three-month mortality. The patient was admitted to the medical floor on continuous cardiac telemetry. He initially had an NG tube placed for medication administration. He was placed on lactulose 20 g every 6 hours with resumption of lower dose of spironolactone and furosemide secondary to hypotension. He was provided maintenance IV fluids for correction of hyponatremia. Rifaximin 550 mill grams twice daily was continued. At the patient's 's request, hospice services were consulted. She did meet with [facility] while the patient was still altered but had expressed she wished the patient's mental status to improve so that he could participate in the conversation. Fortunately, the patient's encephalopathy rapidly resolved and 36 hours later he was A&Ox4 and at his baseline mental status per his . The production control planner met with the patient and to discuss optional dispositions; home with home health versus hospice versus discharge to SNF for short-term rehab. Patient and expressed interest in discharge to home with resumption of home health nursing, physical therapy services, and hospice bridge. The patient's medications were further titrated; lactulose decreased to 20 g every 8 hours, spironolactone 100 mg daily, furosemide 20 mg twice daily. Orthostatic vital signs were negative; patient denied dizziness with physical therapy evaluation (complaint of dizziness that prompted the patient to discontinue his medications with him this to be a side effect). Physical therapy recommended continued home health PT. As the patient's hospital benefit was maximized, he was discharged home with home health nursing and physical therapy services. Discharge planning was asked to assist with obtaining a home health agency that had a hospice bridge option. At time of discharge, the patient was maintaining oxygen saturations on room air, and was asymptomatic, and had return to his baseline mental and functional status. He was provided updated prescriptions for folic acid, thiamine, multivitamin with iron, lactulose, spironolactone, and furosemide. He was advised to follow-up with his primary care provider within [address] Yang as scheduled. He was also instructed to return to the emergency department as needed for any concerning symptoms. (2) Anemia Is this a current diagnosis for this admission?: Yes Summary: Hgb 11.8--> 10.4; at baseline. Likely secondary to chronic malnutrition (hx EtOH abuse; recently discontinued drinking). Anemia panel confirms anemia of chronic disease. (3) Hyponatremia Is this a current diagnosis for this admission?: Yes Summary: Chronic; improved slightly with IV fluids but has returned to his baseline of 130. Secondary to ESLD (4) Gncfc-so-wxxrevo kidney injury Is this a current diagnosis for this admission?: Yes Summary: Improved; admitted with a creatinine of 1.84 and BUN of 26. Trended down to 1.34 and 18 with gentle IV fluids. Encourage p.o. fluids. Spironolactone and furosemide doses have been adjusted. Recommend follow-up chemistry during follow-up visit with his PCP. (5) Hyperammonemia Is this a current diagnosis for this admission?: Yes Summary: Resolved; ammonia 124--> 31 Continue lactulose 20 g every 8 hours (6) History of ETOH abuse Is this a current diagnosis for this admission?: Yes Summary: Recommend continuing daily multivitamin, thiamine, and folic acid supplementation. - Additional Information Resuscitation Status: Do Not Resuscitate Discharge Diet: As Tolerated, Other (Comments) Discharge Activity: Activity As Tolerated, Balance Activity w/Rest, No Driving Prescriptions: Folic Acid [Folvite 1 mg Tablet] 1 mg PO DAILY #90 tablet Furosemide [Lasix 20 mg Tablet] 20 mg PO BID #60 tablet Lactulose [Cephulac Syrup 20 gm/30 ml Udcup] 20 gm PO Q8 #90 udc Spironolactone [Aldactone 25 mg Tablet] 100 mg PO DAILY #30 tablet Thiamine HCl [Thiamine 100 mg Tablet] 100 mg PO DAILY #90 tablet Home Medications: Albuterol Sulfate [Proair HFA Inhalation Aerosol 8.5 gm MDI] 2 puff IH Q6HP PRN 04/15/18 Ergocalciferol (Vitamin D2) [Drisdol 50,000 unit (1.25MG) Capsule] 50,000 unit PO MO@1000 04/15/18 Magnesium Oxide [Mag-Ox 400 mg Tablet] 400 mg PO DAILY 04/15/18 Ondansetron [Ondansetron Odt] 8 mg SL DAILYP PRN 04/15/18 Rabeprazole Sodium [Aciphex] 20 mg PO DAILY 04/15/18 Acetaminophen [Tylenol 325 mg Tablet] 325 mg PO Q4HP PRN tablet 04/18/18 Folic Acid [Folvite 1 mg Tablet] 1 mg PO DAILY #90 tablet 04/18/18 Furosemide [Lasix 20 mg Tablet] 20 mg PO BID #60 tablet 04/18/18 Lactulose [Cephulac Syrup 20 gm/30 ml Udcup] 20 gm PO Q8 #90 udc 04/18/18 Mag Hydrox/Al Hydrox/Simeth [Maalox Plus Susp 30 Udcup] 30 ml PO Q6HP PRN udc 04/18/18 Multivitamins W-Iron [Flintstones Chewable Multivit W/Fe Tab] 2 tab PO DAILY tab.chew 04/18/18 Rifaximin [Xifaxan 550 mg Tablet] 550 mg PO Q12 #0 tablet 04/18/18 Spironolactone [Aldactone 25 mg Tablet] 100 mg PO DAILY #30 tablet 04/18/18 Thiamine HCl [Thiamine 100 mg Tablet] 100 mg PO DAILY #90 tablet 04/18/18 History of Present Illness History of Present Illness: ROX PUENTE is a 68 year old male with a past medical history significant for ESLD secondary EtOH abuse and reported hepatitis C, CKD 2, obesity, prostate cancer, GERD, and anemia. Patient underwent outpatient EGD by Dr. Natacha venegas with variceal banding. Dr. Yang called to provide some background; patient has been intermittently noncompliant. He was mid- TIPS procedure workup last year when he stopped following up. He presented to the emergency department today via EMS with his for report of 3 days of progressively worsening altered mental status secondary to refusal to take his home medication regiment. The patient reports that this morning the patient was unable to recognize her, answer questions, or follow directions; was very repetitive in nature. At the time of my assessment, the patient had been sedated with Geodon due to attempts to remove the lines. Evaluation in the emergency department revealed chronic anemia (at baseline, Hgb 11.8), INR 1.23, mild hyponatremia (130.3), hyperkalemia (5.5), A/CKI (creatinine 1.84 up from baseline of 1.25), elevated LFTs, and an ammonia of 124. Serum alcohol was negative. Chest x-ray was negative for acute cardiopulmonary findings, EKG demonstrated NSR, Head CT was negative for intracranial findings. He is referred to the hospitalist service for admission and management of hepatic encephalopathy. Physical Exam Vital Signs: Temp Pulse Resp BP Pulse Ox 98.3 F 83 16 117/64 100 04/18/18 12:09 04/18/18 12:09 04/18/18 12:09 04/18/18 12:09 04/18/18 12:09 Intake & Output 04/17/18 04/18/18 04/19/18 06:59 06:59 06:59 Intake Total 1270 2210 Output Total 300 875 Balance 970 1335 Weight 70.6 kg 75.3 kg General appearance: PRESENT: no acute distress, thin, well-developed Head exam: PRESENT: atraumatic, normocephalic Eye exam: PRESENT: conjunctiva pink, EOMI, PERRLA. ABSENT: scleral icterus Ear exam: PRESENT: normal external ear exam Mouth exam: PRESENT: moist, tongue midline Neck exam: ABSENT: carotid bruit, JVD, lymphadenopathy, thyromegaly Respiratory exam: PRESENT: clear to auscultation jose luis, symmetrical, unlabored. ABSENT: rales, rhonchi, wheezes Cardiovascular exam: PRESENT: RRR, +S1, +S2. ABSENT: diastolic murmur, rubs, systolic murmur Pulses: PRESENT: normal dorsalis pedis pul Vascular exam: PRESENT: normal capillary refill GI/Abdominal exam: PRESENT: ascites, normal bowel sounds, soft. ABSENT: distended, guarding, mass, organolmegaly, rebound, tenderness Rectal exam: PRESENT: deferred Extremities exam: PRESENT: full ROM. ABSENT: calf tenderness, clubbing, pedal edema Neurological exam: PRESENT: alert, awake, oriented to person, oriented to place, oriented to time, oriented to situation, CN II-XII grossly intact. ABSENT: motor sensory deficit Psychiatric exam: PRESENT: appropriate affect, normal mood. ABSENT: homicidal ideation, suicidal ideation Skin exam: PRESENT: dry, intact, warm. ABSENT: cyanosis, rash Results Laboratory Results: 04/18/18 06:24 04/18/18 06:24 04/18/18 04/18/18 06:24 06:24 WBC 12.8 H RBC 3.11 L Hgb 10.4 L Hct 29.4 L MCV 95 MCH 33.6 H MCHC 35.5 RDW 14.1 H Plt Count 175 Sodium 130.7 L Potassium 4.1 Chloride 99 Carbon Dioxide 22 Anion Gap 10 BUN 20 Creatinine 1.38 H Est GFR ( Amer) > 60 Est GFR (Non-Af Amer) 51 L Glucose 107 Calcium 8.6 Total Bilirubin 4.0 H AST 51 ALT 31 Alkaline Phosphatase 115 Total Protein 7.0 Albumin 2.9 L Impressions: Chest X-Ray 04/15/18 00:00 IMPRESSION: Nasogastric tube tip and side port in the stomach Head CT 04/15/18 09:14 IMPRESSION: NO ACUTE INTRACRANIAL IMAGING FINDINGS. EVIDENCE OF ACUTE STROKE: NO. Qualifiers - * PATIENT BEING DISCHARGED WITH ANY OF THE FOLLOWING DIAGNOSIS: No Plan Discharge Plan: Discharged home with home health nursing, physical therapy, and hospice bridge. Follow-up with primary care provider within 1 week. Follow-up with Dr. Yang as scheduled. Return to the emergency department as needed. Time Spent: Less than 30 Minutes
== END 2018-04-18 12:32 | disposition home health service (06) | DRG 442 ==
LOC: ER 08:28 → EH 10:25 → 4N 17:05
PROVIDERS: ADMIT Internal Medicine; ATTEND Internal Medicine
PROC: 3E0F73Z Introduction of Anti-inflammatory into Respiratory Tract, Via Natural or Artificial Opening (ICD-10-PCS; principal; 2018-04-16)
DX: K72.90 Hepatic failure, unspecified without coma (principal); E87.1 Hypo-osmolality and hyponatremia; N17.9 Acute kidney failure, unspecified; E72.20 Disorder of urea cycle metabolism, unspecified; D63.1 Anemia in chronic kidney disease; Y90.0 Blood alcohol level of less than 20 mg/100 ml; N18.2 Chronic kidney disease, stage 2 (mild); E66.9 Obesity, unspecified; K21.9 Gastro-esophageal reflux disease without esophagitis; I12.9 Hypertensive chronic kidney disease with stage 1 through stage 4 chronic kidney disease, or unspecified chronic kidney disease; Z66 Do not resuscitate; F10.20 Alcohol dependence, uncomplicated; F32.9 Major depressive disorder, single episode, unspecified; F03.90 Unspecified dementia, unspecified severity, without behavioral disturbance, psychotic disturbance, mood disturbance, and anxiety; Z91.14 Patient's other noncompliance with medication regimen; Z79.899 Other long term (current) drug therapy; Z85.46 Personal history of malignant neoplasm of prostate; Z90.49 Acquired absence of other specified parts of digestive tract; Z86.19 Personal history of other infectious and parasitic diseases; Z87.891 Personal history of nicotine dependence; Z88.0 Allergy status to penicillin; Z88.7 Allergy status to serum and vaccine
CPT/HCPCS: 36415; 70450; 71045; 80053; 80307; 82140; 82607; 82728; 82746; 82962; 83540; 83550; 83735; 84100; 85025; 85027; 85045; 85610; 93005; 93010; 96372; 99291; A9270-GY; J3486; J3490; J7030; S0028